=== PATIENT | female | born 1975 | race Two or more races ===

== ENCOUNTER 2022-05-22 16:03 | Observation (INO) | payer OTHER, SELFPAY ==
[2022-05-22] VITALS (9 sets, daily range): BP systolic 155–229; BP diastolic 79–110; PULSE 86–108; RESP 12–20; TEMP 36.8–36.9; O2SAT 96–100; BMI 22.4
--- NOTE | ~2022-05-22 | CT_ITS ---
EXAMINATION: CT HEAD WITHOUT CONTRAST CLINICAL INFORMATION: Headache. Hypertension. COMPARISON: None available. TECHNIQUE: Contiguous axial imaging was performed from the skull base to vertex without intravenous administration of contrast. This CT examination was performed using dose optimization techniques as appropriate, variously including the following: *Automated exposure control. *Adjustment of mA and/or kV according to patient size (this includes techniques or standardized protocols for targeted exams where dose is matched to indication/reason for exam; i.e. extremities or head). *Use of iterative reconstruction technique. DLP: 1218 mGy-cm FINDINGS: There is no evidence of acute intracranial hemorrhage or edematous territorial infarction. [place]-white matter differentiation is preserved. Hypoattenuating focus caudal to the left lentiform nucleus suggestive of a prominent perivascular space. No additional abnormal attenuation within the brain parenchyma. The ventricles are normal in morphology and size. No evidence for obstructive hydrocephalus. No abnormal mass effect or midline shift. No extra-axial fluid collections. Calcific atherosclerotic disease of the intracranial internal carotid arteries. No hyperdense vessel sign. No acute soft tissue or osseous abnormalities. The mastoid air cells and visualized paranasal sinuses are clear. Bilateral lens extractions. CT/CT head/brain wo IV con IMPRESSION: No evidence of acute intracranial hemorrhage or edematous territorial infarction.
--- NOTE | 2022-05-22 16:25 | ECG_ITS ---
Test Reason : CP Blood Pressure : / mmHG Vent. Rate : 103 BPM Atrial Rate : 103 BPM P-R Int : 146 ms QRS Dur : 082 ms QT Int : 406 ms P-R-T Axes : 072 089 072 degrees QTc Int : 531 ms Sinus tachycardia Possible Left atrial enlargement Prolonged QT Abnormal ECG When compared with ECG of 11-NOV-2019 22:38, QT has lengthened Referred By: Generic ED Physician Electronically Signed By:JESUS SNELL
--- NOTE | 2022-05-22 17:10 | PC.NURSE ---
Patient complaint of chest and head pain post dialysis is hypertensive unsure of fluids taken off. No respiratory distress noted neuros intact AOx 4 + bruit and thrill fistula LUE dressing clean dry and intact. IV access obtained labs collected and sent will CTM
--- NOTE | 2022-05-22 17:12 | ED_ITS ---
HPI - Chest Pain General Chief Complaint: Chest Pain <Ann Stern NP - Last Filed: 05/22/22 17:41> Stated Complaint: headace nausea neck pain <Ann Stern NP - Last Filed: 05/22/22 17:41> Time Seen by Provider: 05/22/22 16:18 <Ann Stern NP - Last Filed: 05/22/22 17:41> Source: patient <Ann Stern NP - Last Filed: 05/22/22 17:41> Mode of arrival: ambulatory <Ann Stern NP - Last Filed: 05/22/22 17:41> Limitations: no limitations <Ann Stern NP - Last Filed: 05/22/22 17:41> History of Present Illness HPI narrative: 47-year-old female with a past medical history of end-stage renal disease on hemodialysis presents the emergency department with complaints of chest pain, headache, nausea and vomiting with elevated blood pressure noted during dialysis. Patient states she has been anuric for past 2 years. She states she completed the full course of dialysis with roughly 4 L fluid pulled. She reports blood pressure was 200s over 100s during dialysis. She states she has not had this happen to her in the past. Pt denies any recent illness, sick contacts, paresthesias, weakness, fever, chills, nausea, vomiting, diarrhea, constipation, headache, or vision changes. <Ann Stern NP - Last Filed: 05/22/22 17:41> MD complaint: chest pain <Ann Stern NP - Last Filed: 05/22/22 17:41> Onset (ago): hour(s) <Ann Stern NP - Last Filed: 05/22/22 17:41> Quality: sharp <Ann Stern NP - Last Filed: 05/22/22 17:41> Associated symptoms: nausea and vomiting <Ann Stern NP - Last Filed: 05/22/22 17:41> Treatment prior to arrival: none <Ann Stern NP - Last Filed: 05/22/22 17:41> Risk Factors Coronary artery disease risk factors: none <Ann Stern NP - Last Filed: 05/22/22 17:41> Thoracic aortic dissection risk factors: none <Ann Stern NP - Last Filed: 05/22/22 17:41> Related Data On Oral Contraceptives: No <Ann Stern NP - Last Filed: 05/22/22 17:41> Allergies/Adverse Reactions: Allergies Allergy/AdvReac Type Severity Reaction Status Date / Time acetaminophen [From TYLENOL] Allergy Unknown UNKNOWN Unverified 01/13/20 18:31 hydrocodone [HYDROCODONE] Allergy Unknown UNKNOWN Unverified 01/13/20 18:31 ibuprofen [IBUPROFEN] Allergy Unknown UNKNOWN Unverified 01/13/20 18:31 latex [LATEX] Allergy Unknown UNKNOWN Unverified 01/13/20 18:31 trazodone [TRAZODONE] Allergy Unknown UNKNOWN Unverified 01/13/20 18:31 <Ann Stern NP - Last Filed: 05/22/22 17:41> Review of Systems Review of Systems: In addition to documented HPI above, the additional ROS was obtained: CONSTITUTIONAL: Denies fever, chills, weakness, fatigue, night sweats, or weight loss EYES: Denies vision changes, eye pain, swelling, redness, foreign body, discharge ENT: Hearing normal. Denies sore throat, swallowing difficulty, throat tightness, hoarse voice, congestion, or ear pain CV: Denies epigastric pain. No edema, palpitations, or dyspnea on exertion RESP: Denies shortness of breath. Denies cough, wheezing, dyspnea. Denies smoke exposure GI: Denies abdominal pain. Denies nausea, vomiting, constipation or diarrhea. No hematemesis, melena, or hematochezia. : Denies irregular bleeding or vaginal discharge. . MSK: Denies recent trauma, change in gait, myalgias, joint swelling or pain SKIN: Denies no lesions, rashes, or sores NEURO: Denies new numbness, tingling, dizziness, paresthesias or weakness. No loss of consciousness. Denies headache ENDOCRINE: Denies unexpected weight loss. No temperature intolerance HEME/ONC: Denies bleeding disorders, easy bruising, or lymphadenopathy PSYCH: Denies anxiety/panic, depression, SI/HI, or social issues. <Ann Stern NP - Last Filed: 05/22/22 17:41> Yes all other systems are reviewed and are negative <Ann Stern NP - Last Filed: 05/22/22 17:41> [facility] Past Medical History Attestation statement: The following information was validated with the patient. <Ann Stern NP - Last Filed: 05/22/22 17:41> Source: old records reviewed <Ann Stern NP - Last Filed: 05/22/22 17:41> Social History Social History: Social History Alcohol intake: unknown Use of substances other than those prescribed or required for medical reasons: No Advance Directives: No Advance Directives Information Provided: No Patient : No <Ann Stern NP - Last Filed: 05/22/22 17:41> Physical Exam Vital Signs: Vital Signs: Last Vital Signs Temp 98.3 F 05/22/22 22:49 Pulse 86 05/22/22 23:22 Resp 14 05/22/22 23:22 BP 155/79 H 05/22/22 23:22 Pulse Ox 96 05/22/22 23:22 O2 Del Method 05/22/22 23:22 BMI result Body Mass Index 22.4 <Ann Stern NP - Last Filed: 05/22/22 17:41> Vital Signs: Last Vital Signs Temp 98.3 F 05/22/22 22:49 Pulse 86 05/22/22 23:22 Resp 14 05/22/22 23:22 BP 155/79 H 05/22/22 23:22 Pulse Ox 96 05/22/22 23:22 O2 Del Method 05/22/22 23:22 BMI result Body Mass Index 22.4 <LUMA Espinal - Last Filed: 05/22/22 23:51> Nursing notes and vital signs reviewed. GENERAL APPEARANCE: A&0 x 4, generally well appearing, no acute distress HENMT: Normal to inspection, atraumatic, face symmetrical. Normal external ears, nose, and oropharynx clear. EYE: PERRLA, EOM intact, structures appear normal NECK: Supple without lymphadenopathy. No stiffness or restricted ROM. CV: Normal to inspection. Dialysis fistula present at LUE HEART: Normal rate and regular rhythm, normal S1/S2, no M/R/G LUNGS: LS CTA, moving air well. Able to speak in complete sentences. No crackles, wheezes, or rhonchi auscultated ABDOMEN: Soft, nontender, nondistended. Normal bowel sounds noted BACK: No CVAT, no obvious deformity EXTREMITIES: Moving all extremities without difficulty. No cyanosis, clubbing, or edema. Normal capillary refill. NEUROLOGICAL: Alert and oriented, moving all 4 extremities with equal strength. CN not formally tested but appearing grossly intact. Observed to ambulate with normal gait. Cognition normal SKIN: Warm and dry without any lesions, rash, or visible sores PSYCH: Cooperative, normal affect, normal thought process <Ann thurston NP - Last Filed: 05/22/22 17:41> Course Course Course Narrative: 1630: EKG, blood work ordered including troponin and liver panel. 1715: Serology ordered to rule out viral URI 1730: Blood work and serology pending. Sign out given to Mitali GE <Ann Stern NP - Last Filed: 05/22/22 17:41> Reevaluation(s) Reevaluation #1: CBC appears to be around patient's baseline within normocytic anemia. Chemistry with elevated anion gap and a baseline kidney injury BUN of 27, creatinine 5.56 better than previous likely secondary to patient having dialysis prior to arrival. Patient's initial troponin 29.8, repeat 31.1 also could be elevated due to CKD, EKG nonischemic however showing sinus tachycardia. Patient remains tachycardic will order D-dimer to rule out PE. Also order head scan as patient is very hypertensive, not responding to p.o. medications, will order IV labetalol as her pressure is 200/99 I did do an exam on this patient NIH stroke scale 0. Neuro nonfocal. <LUMA Espinal - Last Filed: 05/22/22 23:51> Time: 21:29 <LUMA Espinal - Last Filed: 05/22/22 23:51> Reevaluation #2: CT with no acute findings. <LUMA Espinal - Last Filed: 05/22/22 23:51> Time: 22:15 <LUMA Espinal - Last Filed: 05/22/22 23:51> Reevaluation #3: Patients BP improving- 155/79, still reporting typical CP and headache however improving will give sumatriptan <LUMA Espinal - Last Filed: 05/22/22 23:51> Medications Administered Discontinued Medications Generic Name Dose Route Start Last Admin Trade Name Freq PRN Reason Stop Dose Admin Amlodipine Besylate 10 mg 05/22/22 17:29 05/22/22 17:39 Amlodipine Besylate 10 Mg Tablet PO 05/22/22 17:30 10 mg ONCE ONE Administration Protocol Fentanyl 50 mcg 05/22/22 19:23 05/22/22 19:40 Fentanyl Citrate/Pf 100 Mcg/2 Ml Vial IVPUSH 05/22/22 19:24 50 mcg ONCE ONE Administration Protocol Fentanyl 50 mcg 05/22/22 22:57 05/22/22 23:07 Fentanyl Citrate/Pf 100 Mcg/2 Ml Vial IVPUSH 05/22/22 22:58 50 mcg ONCE ONE Administration Protocol Sodium Chloride 1,000 mls @ 999 mls/hr 05/22/22 17:45 05/22/22 17:52 Ns IV 05/22/22 18:45 999 mls/hr .Q1H1M LEIGH Administration Labetalol HCl 20 mg 05/22/22 21:26 05/22/22 23:06 Labetalol Hcl 100 Mg/20 Ml Vial IVPUSH 05/22/22 21:27 20 mg ONCE ONE Administration <Ann Stern NP - Last Filed: 05/22/22 17:41> Medications Administered Discontinued Medications Generic Name Dose Route Start Last Admin Trade Name Freq PRN Reason Stop Dose Admin Amlodipine Besylate 10 mg 05/22/22 17:29 05/22/22 17:39 Amlodipine Besylate 10 Mg Tablet PO 05/22/22 17:30 10 mg ONCE ONE Administration Protocol Fentanyl 50 mcg 05/22/22 19:23 05/22/22 19:40 Fentanyl Citrate/Pf 100 Mcg/2 Ml Vial IVPUSH 05/22/22 19:24 50 mcg ONCE ONE Administration Protocol Fentanyl 50 mcg 05/22/22 22:57 05/22/22 23:07 Fentanyl Citrate/Pf 100 Mcg/2 Ml Vial IVPUSH 05/22/22 22:58 50 mcg ONCE ONE Administration Protocol Sodium Chloride 1,000 mls @ 999 mls/hr 05/22/22 17:45 05/22/22 17:52 Ns IV 05/22/22 18:45 999 mls/hr .Q1H1M LEIGH Administration Labetalol HCl 20 mg 05/22/22 21:26 05/22/22 23:06 Labetalol Hcl 100 Mg/20 Ml Vial IVPUSH 05/22/22 21:27 20 mg ONCE ONE Administration <LUMA Espinal - Last Filed: 05/22/22 23:51> Medical Decision Making Medical Decision Making MDM Narrative: 47-year-old female with a past medical history of end-stage renal disease on hemodialysis presents the emergency department with complaints of chest pain, headache, nausea and vomiting with elevated blood pressure noted during dialysis. EKG sinus tachycardia with prolonged QT, when compared to previous EKG done on 11/11/19 QT has lengthened. <Ann Stern NP - Last Filed: 05/22/22 17:41> Lab Data Result Diagrams: 05/22/22 16:38 05/22/22 16:38 <Ann Stern NP - Last Filed: 05/22/22 17:41> Labs: Lab Results 05/22/22 05/22/22 05/22/22 Range/Units 16:38 16:38 17:26 WBC 8.1 (4.8-10.8) X10*3/uL RBC 3.55 L (4.20-5.50) X10*6/uL Hgb 9.7 L (12.0-16.0) g/dl Hct 29.5 L (37.0-47.0) % MCV 83.1 (80.0-98.0) fL MCH 27.3 (27.0-33.0) pg MCHC 32.9 (31.0-35.0) g/dl RDW 12.8 (11.0-16.0) % Plt Count 185 (160-400) X10*3/uL MPV 10.3 (9.4-12.3) fL Immature Gran % (Auto) 0.5 H (0.0-0.4) % Neut % (Auto) 77.8 H (45-73) % Lymph % (Auto) 9.5 L (20-40) % Morrill % (Auto) 6.9 (2-11) % Eos % (Auto) 4.8 H (0-4) % Baso % (Auto) 0.5 (0-2) % Lymph # (Auto) 0.8 L (1.2-4.9) X10*3/uL Morrill # (Auto) 0.6 (0.1-1.2) X10*3/uL Eos # (Auto) 0.4 (0.0-0.4) X10*3/uL Baso # (Auto) 0.0 (0.0-0.2) X10*3/uL Abs Immat Gran (auto) 0.04 H (0.00-0.03) X10*3/uL Absolute Neuts (auto) 6.3 (2.0-8.3) x10*3/uL Absolute Nucleated RBC 0.000 (0.0-0.012) X10*3/uL Nucleated RBC % (auto) 0.0 (0.0-0.2) /100WBC Smear Tech's Comments VERIFIED D-Dimer High Sensitivty NG/ML Sodium 141 (135-145) mmol/L Potassium 3.9 (3.3-5.1) mmol/L Chloride 95 L (96-108) mmol/L Carbon Dioxide 27 (22-29) mmol/L Anion Gap 23 H (12-20) BUN 27 H (9-16) mg/dL Creatinine 5.56 H* (0.5-1.4) mg/dL Estim Creat Clear Calc 10.1 Estimated GFR 8 POC Glucose (60-115) mg/dL Random Glucose 61 (60-115) mg/dL Calcium 9.1 (8.4-10.2) mg/dL Total Bilirubin 1.0 (0.0-1.0) mg/dL Direct Bilirubin 0.2 (0.0-0.5) mg/dL AST 17 (5-31) U/L ALT 9 (0-31) U/L Alkaline Phosphatase 103 (39-117) U/L Troponin I High Sens 29.8 H (<3.5-17.0) ng/L Total Protein 7.3 (6.5-8.0) g/dL Albumin 4.4 (3.5-5.0) g/dL COVID-19 (SY) (Negative) COVID-19 Clin Com Influenza Type A (CHRISTIE) (Negative) Influenza Type B (CHRISTIE) (Negative) Influenza A & B Note 05/22/22 05/22/22 05/22/22 Range/Units 17:26 17:26 20:46 WBC (4.8-10.8) X10*3/uL RBC (4.20-5.50) X10*6/uL Hgb (12.0-16.0) g/dl Hct (37.0-47.0) % MCV (80.0-98.0) fL MCH (27.0-33.0) pg MCHC (31.0-35.0) g/dl RDW (11.0-16.0) % Plt Count (160-400) X10*3/uL MPV (9.4-12.3) fL Immature Gran % (Auto) (0.0-0.4) % Neut % (Auto) (45-73) % Lymph % (Auto) (20-40) % Morrill % (Auto) (2-11) % Eos % (Auto) (0-4) % Baso % (Auto) (0-2) % Lymph # (Auto) (1.2-4.9) X10*3/uL Morrill # (Auto) (0.1-1.2) X10*3/uL Eos # (Auto) (0.0-0.4) X10*3/uL Baso # (Auto) (0.0-0.2) X10*3/uL Abs Immat Gran (auto) (0.00-0.03) X10*3/uL Absolute Neuts (auto) (2.0-8.3) x10*3/uL Absolute Nucleated RBC (0.0-0.012) X10*3/uL Nucleated RBC % (auto) (0.0-0.2) /100WBC Smear Tech's Comments D-Dimer High Sensitivty NG/ML Sodium (135-145) mmol/L Potassium (3.3-5.1) mmol/L Chloride (96-108) mmol/L Carbon Dioxide (22-29) mmol/L Anion Gap (12-20) BUN (9-16) mg/dL Creatinine (0.5-1.4) mg/dL Estim Creat Clear Calc Estimated GFR POC Glucose (60-115) mg/dL Random Glucose (60-115) mg/dL Calcium (8.4-10.2) mg/dL Total Bilirubin (0.0-1.0) mg/dL Direct Bilirubin (0.0-0.5) mg/dL AST (5-31) U/L ALT (0-31) U/L Alkaline Phosphatase (39-117) U/L Troponin I High Sens 31.1 H (<3.5-17.0) ng/L Total Protein (6.5-8.0) g/dL Albumin (3.5-5.0) g/dL COVID-19 (SY) Negative (Negative) COVID-19 Clin Com See Note Influenza Type A (CHRISTIE) Negative (Negative) Influenza Type B (CHRISTIE) Negative (Negative) Influenza A & B Note See Note 05/22/22 05/22/22 Range/Units 22:03 23:29 WBC (4.8-10.8) X10*3/uL RBC (4.20-5.50) X10*6/uL Hgb (12.0-16.0) g/dl Hct (37.0-47.0) % MCV (80.0-98.0) fL MCH (27.0-33.0) pg MCHC (31.0-35.0) g/dl RDW (11.0-16.0) % Plt Count (160-400) X10*3/uL MPV (9.4-12.3) fL Immature Gran % (Auto) (0.0-0.4) % Neut % (Auto) (45-73) % Lymph % (Auto) (20-40) % Morrill % (Auto) (2-11) % Eos % (Auto) (0-4) % Baso % (Auto) (0-2) % Lymph # (Auto) (1.2-4.9) X10*3/uL Morrill # (Auto) (0.1-1.2) X10*3/uL Eos # (Auto) (0.0-0.4) X10*3/uL Baso # (Auto) (0.0-0.2) X10*3/uL Abs Immat Gran (auto) (0.00-0.03) X10*3/uL Absolute Neuts (auto) (2.0-8.3) x10*3/uL Absolute Nucleated RBC (0.0-0.012) X10*3/uL Nucleated RBC % (auto) (0.0-0.2) /100WBC Smear Tech's Comments D-Dimer High Sensitivty 227 NG/ML Sodium (135-145) mmol/L Potassium (3.3-5.1) mmol/L Chloride (96-108) mmol/L Carbon Dioxide (22-29) mmol/L Anion Gap (12-20) BUN (9-16) mg/dL Creatinine (0.5-1.4) mg/dL Estim Creat Clear Calc Estimated GFR POC Glucose 63 (60-115) mg/dL Random Glucose (60-115) mg/dL Calcium (8.4-10.2) mg/dL Total Bilirubin (0.0-1.0) mg/dL Direct Bilirubin (0.0-0.5) mg/dL AST (5-31) U/L ALT (0-31) U/L Alkaline Phosphatase (39-117) U/L Troponin I High Sens (<3.5-17.0) ng/L Total Protein (6.5-8.0) g/dL Albumin (3.5-5.0) g/dL COVID-19 (SY) (Negative) COVID-19 Clin Com Influenza Type A (CHRISTIE) (Negative) Influenza Type B (CHRISTIE) (Negative) Influenza A & B Note <Ann Stern NP - Last Filed: 05/22/22 17:41> Lab Results 05/22/22 05/22/22 05/22/22 Range/Units 16:38 16:38 17:26 WBC 8.1 (4.8-10.8) X10*3/uL RBC 3.55 L (4.20-5.50) X10*6/uL Hgb 9.7 L (12.0-16.0) g/dl Hct 29.5 L (37.0-47.0) % MCV 83.1 (80.0-98.0) fL MCH 27.3 (27.0-33.0) pg MCHC 32.9 (31.0-35.0) g/dl RDW 12.8 (11.0-16.0) % Plt Count 185 (160-400) X10*3/uL MPV 10.3 (9.4-12.3) fL Immature Gran % (Auto) 0.5 H (0.0-0.4) % Neut % (Auto) 77.8 H (45-73) % Lymph % (Auto) 9.5 L (20-40) % Morrill % (Auto) 6.9 (2-11) % Eos % (Auto) 4.8 H (0-4) % Baso % (Auto) 0.5 (0-2) % Lymph # (Auto) 0.8 L (1.2-4.9) X10*3/uL Morrill # (Auto) 0.6 (0.1-1.2) X10*3/uL Eos # (Auto) 0.4 (0.0-0.4) X10*3/uL Baso # (Auto) 0.0 (0.0-0.2) X10*3/uL Abs Immat Gran (auto) 0.04 H (0.00-0.03) X10*3/uL Absolute Neuts (auto) 6.3 (2.0-8.3) x10*3/uL Absolute Nucleated RBC 0.000 (0.0-0.012) X10*3/uL Nucleated RBC % (auto) 0.0 (0.0-0.2) /100WBC Smear Tech's Comments VERIFIED D-Dimer High Sensitivty NG/ML Sodium 141 (135-145) mmol/L Potassium 3.9 (3.3-5.1) mmol/L Chloride 95 L (96-108) mmol/L Carbon Dioxide 27 (22-29) mmol/L Anion Gap 23 H (12-20) BUN 27 H (9-16) mg/dL Creatinine 5.56 H* (0.5-1.4) mg/dL Estim Creat Clear Calc 10.1 Estimated GFR 8 POC Glucose (60-115) mg/dL Random Glucose 61 (60-115) mg/dL Calcium 9.1 (8.4-10.2) mg/dL Total Bilirubin 1.0 (0.0-1.0) mg/dL Direct Bilirubin 0.2 (0.0-0.5) mg/dL AST 17 (5-31) U/L ALT 9 (0-31) U/L Alkaline Phosphatase 103 (39-117) U/L Troponin I High Sens 29.8 H (<3.5-17.0) ng/L Total Protein 7.3 (6.5-8.0) g/dL Albumin 4.4 (3.5-5.0) g/dL COVID-19 (SY) (Negative) COVID-19 Clin Com Influenza Type A (CHRISTIE) (Negative) Influenza Type B (CHRISTIE) (Negative) Influenza A & B Note 05/22/22 05/22/22 05/22/22 Range/Units 17:26 17:26 20:46 WBC (4.8-10.8) X10*3/uL RBC (4.20-5.50) X10*6/uL Hgb (12.0-16.0) g/dl Hct (37.0-47.0) % MCV (80.0-98.0) fL MCH (27.0-33.0) pg MCHC (31.0-35.0) g/dl RDW (11.0-16.0) % Plt Count (160-400) X10*3/uL MPV (9.4-12.3) fL Immature Gran % (Auto) (0.0-0.4) % Neut % (Auto) (45-73) % Lymph % (Auto) (20-40) % Morrill % (Auto) (2-11) % Eos % (Auto) (0-4) % Baso % (Auto) (0-2) % Lymph # (Auto) (1.2-4.9) X10*3/uL Morrill # (Auto) (0.1-1.2) X10*3/uL Eos # (Auto) (0.0-0.4) X10*3/uL Baso # (Auto) (0.0-0.2) X10*3/uL Abs Immat Gran (auto) (0.00-0.03) X10*3/uL Absolute Neuts (auto) (2.0-8.3) x10*3/uL Absolute Nucleated RBC (0.0-0.012) X10*3/uL Nucleated RBC % (auto) (0.0-0.2) /100WBC Smear Tech's Comments D-Dimer High Sensitivty NG/ML Sodium (135-145) mmol/L Potassium (3.3-5.1) mmol/L Chloride (96-108) mmol/L Carbon Dioxide (22-29) mmol/L Anion Gap (12-20) BUN (9-16) mg/dL Creatinine (0.5-1.4) mg/dL Estim Creat Clear Calc Estimated GFR POC Glucose (60-115) mg/dL Random Glucose (60-115) mg/dL Calcium (8.4-10.2) mg/dL Total Bilirubin (0.0-1.0) mg/dL Direct Bilirubin (0.0-0.5) mg/dL AST (5-31) U/L ALT (0-31) U/L Alkaline Phosphatase (39-117) U/L Troponin I High Sens 31.1 H (<3.5-17.0) ng/L Total Protein (6.5-8.0) g/dL Albumin (3.5-5.0) g/dL COVID-19 (SY) Negative (Negative) COVID-19 Clin Com See Note Influenza Type A (CHRISTIE) Negative (Negative) Influenza Type B (CHRISTIE) Negative (Negative) Influenza A & B Note See Note 05/22/22 05/22/22 Range/Units 22:03 23:29 WBC (4.8-10.8) X10*3/uL RBC (4.20-5.50) X10*6/uL Hgb (12.0-16.0) g/dl Hct (37.0-47.0) % MCV (80.0-98.0) fL MCH (27.0-33.0) pg MCHC (31.0-35.0) g/dl RDW (11.0-16.0) % Plt Count (160-400) X10*3/uL MPV (9.4-12.3) fL Immature Gran % (Auto) (0.0-0.4) % Neut % (Auto) (45-73) % Lymph % (Auto) (20-40) % Morrill % (Auto) (2-11) % Eos % (Auto) (0-4) % Baso % (Auto) (0-2) % Lymph # (Auto) (1.2-4.9) X10*3/uL Morrill # (Auto) (0.1-1.2) X10*3/uL Eos # (Auto) (0.0-0.4) X10*3/uL Baso # (Auto) (0.0-0.2) X10*3/uL Abs Immat Gran (auto) (0.00-0.03) X10*3/uL Absolute Neuts (auto) (2.0-8.3) x10*3/uL Absolute Nucleated RBC (0.0-0.012) X10*3/uL Nucleated RBC % (auto) (0.0-0.2) /100WBC Smear Tech's Comments D-Dimer High Sensitivty 227 NG/ML Sodium (135-145) mmol/L Potassium (3.3-5.1) mmol/L Chloride (96-108) mmol/L Carbon Dioxide (22-29) mmol/L Anion Gap (12-20) BUN (9-16) mg/dL Creatinine (0.5-1.4) mg/dL Estim Creat Clear Calc Estimated GFR POC Glucose 63 (60-115) mg/dL Random Glucose (60-115) mg/dL Calcium (8.4-10.2) mg/dL Total Bilirubin (0.0-1.0) mg/dL Direct Bilirubin (0.0-0.5) mg/dL AST (5-31) U/L ALT (0-31) U/L Alkaline Phosphatase (39-117) U/L Troponin I High Sens (<3.5-17.0) ng/L Total Protein (6.5-8.0) g/dL Albumin (3.5-5.0) g/dL COVID-19 (SY) (Negative) COVID-19 Clin Com Influenza Type A (CHRISTIE) (Negative) Influenza Type B (CHRISTIE) (Negative) Influenza A & B Note <LUMA Espinal - Last Filed: 05/22/22 23:51> Independent Interpretation I performed an independent interpretation of an: EKG <Ann Stern NP - Last Filed: 05/22/22 17:41> Interpretation: I independently reviewed the EKG showing sinus tach, prolonged QT at 103 bpm. Vent. Rate : 103 BPM ? ? Atrial Rate : 103 BPM ?? P-R Int : 146 ms? QRS Dur : 082 ms ? ? QT Int : 406 ms ? ? ? P-R-T Axes : 072 089 072 degrees ?? QTc Int : 531 ms ? Sinus tachycardia Possible Left atrial enlargement Prolonged QT Abnormal ECG When compared with ECG of 11-NOV-2019 22:38, QT has lengthened <Ann Stern NP - Last Filed: 05/22/22 17:41> Critical Care Time Critical Care Time Critical Care Time: Yes <LUMA Espinal - Last Filed: 05/22/22 23:51> Total Critical Care Time: 35 <LUMA Espinal - Last Filed: 05/22/22 23:51> Attestation: I attest to this time spent taking care of the patient, obtaining history, physical, reviewing labs, imaging, speaking to my attending, speaking to specialist. <LUMA Espinal - Last Filed: 05/22/22 23:51> Discharge Plan Discharge Clinical Impression: Chest pain, Headache, CKD (chronic kidney disease), Hypertensive urgency <Ann Stern NP - Last Filed: 05/22/22 17:41> Patient Disposition: Admitted As Inpatient <Ann Stern NP - Last Filed: 05/22/22 17:41>
[2022-05-22 17:37] LABS: Troponin-I High Sensitivity 29.8 ng/L (<3.5-17.0)
[2022-05-22 17:38] LABS: Anion Gap 23 (12-20); Blood Urea Nitrogen 27 mg/dL (9-16); Calcium 9.1 mg/dL (8.4-10.2); Carbon Dioxide 27 mmol/L (22-29); Chloride 95 mmol/L (96-108); Creatinine Clr Calc Pharmacy 10.1; Estimated Glomerular Filt Rate 8; Glucose Random 61 mg/dL (60-115); Potassium 3.9 mmol/L (3.3-5.1); Sodium 141 mmol/L (135-145)
[2022-05-22] MEDS: amLODIPine Besylate 10 MG TABLET PO (17:39)
[2022-05-22 17:49] LABS: COVID-19 Test Negative (Negative); IDNOW Serial# 16C4AD1C; IDNOW Serial# BCCEAD1C; Influenza A Negative (Negative); Influenza B2 Negative (Negative)
[2022-05-22 17:50] LABS: Alanine Aminotransferase 9 U/L (0-31); Albumin Level 4.4 g/dL (3.5-5.0); Alkaline Phosphatase 103 U/L (39-117); Aspartate Amino Transferase 17 U/L (5-31); Bilirubin Direct 0.2 mg/dL (0.0-0.5); Total Protein 7.3 g/dL (6.5-8.0)
[2022-05-22] MEDS: 0.9 % Sodium Chloride 1,000 ML 999 ML IV (17:52)
[2022-05-22 18:03] LABS: Lymphocytes Percent Auto 9.5 % (20-40); MANUAL DIFF FLAG SCAN; Mean Corpuscular Volume 83.1 fL (80.0-98.0); PLT CLUMP 1; Red Cell Distribution Width 12.8 % (11.0-16.0); SCAN SMEAR FLAG 1
[2022-05-22 18:05] LABS: Basophils Percent Auto 0.5 % (0-2); Eosinophils Absolute Auto 0.4 X10*3/uL (0.0-0.4); Eosinophils Percent Auto 4.8 % (0-4); Hematocrit 29.5 % (37.0-47.0); Hemoglobin 9.7 g/dl (12.0-16.0); Imm Gran Abs Auto 0.04 X10*3/uL (0.00-0.03); Imm Gran Pct Auto 0.5 % (0.0-0.4); Lymphocytes Absolute Auto 0.8 X10*3/uL (1.2-4.9); Mean Corpuscular HGB Conc 32.9 g/dl (31.0-35.0); Mean Corpuscular Hemoglobin 27.3 pg (27.0-33.0); Mean Platelet Volume 10.3 fL (9.4-12.3); Monocytes Absolute Auto 0.6 X10*3/uL (0.1-1.2); Monocytes Percent Auto 6.9 % (2-11); Neutrophils Absolute Auto 6.3 x10*3/uL (2.0-8.3); Neutrophils Percent Auto 77.8 % (45-73); Red Blood Count 3.55 X10*6/uL (4.20-5.50)
[2022-05-22 18:29] LABS: Platelet Count 185 X10*3/uL (160-400); White Blood Count 8.1 X10*3/uL (4.8-10.8)
[2022-05-22 18:31] LABS: SLIDE REVIEW VERIFIED
--- NOTE | 2022-05-22 19:33 | ECG_ITS ---
Test Reason : REPEAT/CHEST PAIN Blood Pressure : / mmHG Vent. Rate : 103 BPM Atrial Rate : 103 BPM P-R Int : 136 ms QRS Dur : 080 ms QT Int : 394 ms P-R-T Axes : 068 090 066 degrees QTc Int : 516 ms Sinus tachycardia Possible Left atrial enlargement Rightward axis Prolonged QT Abnormal ECG When compared with ECG of 22-MAY-2022 16:29, No significant change was found Referred By: Genoveva Hernandez Electronically Signed By:JESUS SNELL
--- NOTE | 2022-05-22 19:36 | PC.NURSE ---
Martir Hernandez made aware pt c/o 01/05 medial chest pain , neck pain and stabbing like headache. Per provider new orders Ekg stat and fentanyl IV 50 mcg.
--- NOTE | 2022-05-22 19:38 | PC.NURSE ---
Provider aware pt continues with elevated blood pressures, no new orders at this time.
[2022-05-22] MEDS: fentaNYL citrate/PF 100 MCG/2 ML VIAL 50 MCG IVPUSH ×2 (19:40→23:07)
[2022-05-22 21:13] LABS: Troponin-I High Sensitivity 31.1 ng/L (<3.5-17.0)
[2022-05-22 22:23] LABS: D Dimer High Sensitivity 227 NG/ML
--- NOTE | 2022-05-22 22:52 | PC.NURSE ---
Pt villanueva X 4 c/o 01/05 sharp chest pain reports pain remains the same.
[2022-05-22] MEDS: Labetalol HCL 100 MG/20 ML VIAL 20 MG IVPUSH (23:06)
--- NOTE | 2022-05-22 23:23 | PC.NURSE ---
Pt medicated per MAR VS much improved see chart.
[2022-05-22 23:33] LABS: Glucose, Whole Blood 63 mg/dL (60-115)
--- NOTE | 2022-05-22 23:35 | PC.NURSE ---
Pt reported dizziness after receiving labetolol 20 mg IV and fentanol 50 mcg IV. Blood sugar assessed 63. okay per provider for pt to receive elen Iqbal.
--- NOTE | 2022-05-22 23:51 | PM.IMHP ---
History of Present Illness Date of Service: 05/22/22 Chief Complaint: IGNACIA saunders 47-year-old female with past medical history of ESRD on dialysis, hypertension, diabetes, presents to the hospital complaints of chest pain headache. Patient reports that she has chronic severe as well as poorly controlled hypertension, that has been hard to control, currently being evaluated by Nephrology as well as her PCP in being monitored with new changes to her medications because she reports that her blood pressure is usually in the 200s. Comes in complaining of diffuse headache, as well as midsternal chest pain. She reports the chest pain to be pressure-like, constant, nonradiating, no relieving or exacerbating factors. Patient denies any nausea no vomiting, no abdominal pain, no diarrhea constipation, no urinary symptoms and no lower extremity edema. She reports no palpitations. To the ED patient hemodynamically stable with heart rate of 102, blood pressure of 229/106 Labs are significant for WBC count of 8.1, hemoglobin of 9.7, hematocrit 29.5, creatinine of 5.56, glucose of 57, troponin of 29 increased to 30 when then 3rd troponin of 27.2, COVID-19 influenza and RSV negative Patient received labetalol as well as a 2nd dose of amlodipine which she takes at home, as well as fentanyl for the headache with improvement in her symptoms as well as blood pressure Review of Systems Review of Systems: Yes all other systems are reviewed and are negative [facility] Medical History (Updated 05/23/22 @ 06:58 by Pipe Rainey MD) Diabetes ESRD on dialysis Hypertension Social History Household Members: Children Housing: House Do you presently have visiting nurse or other home services: Yes (daughter is SANITARIAN AIDE, PT comes to house) Alcohol intake: unknown Patient Tobacco Use Status: Former Tobacco user Use of substances other than those prescribed or required for medical reasons: No Have you been hit, kicked, punched, or otherwise hurt by someone within the past year? If so, by whom?: No Do you feel safe in your current relationship?: No Is there a partner from a previous relationship who is making you feel unsafe now?: No Are you made to feel afraid or neglected: No Advance Directives: No Advance Directives Information Provided: No Do you have thoughts of harming others: None Recently lost weight without trying: No Nutrition Risks: Gastrointestinal Malabsorption Patient : No : No Poor oral hygiene: No Meds Allergies Allergy/AdvReac Type Severity Reaction Status Date / Time acetaminophen [From TYLENOL] Allergy Unknown UNKNOWN Unverified 01/13/20 18:31 hydrocodone [HYDROCODONE] Allergy Unknown UNKNOWN Unverified 01/13/20 18:31 ibuprofen [IBUPROFEN] Allergy Unknown UNKNOWN Unverified 01/13/20 18:31 latex [LATEX] Allergy Unknown UNKNOWN Unverified 01/13/20 18:31 trazodone [TRAZODONE] Allergy Unknown UNKNOWN Unverified 01/13/20 18:31 Active Medications: Current Medications Pharmacy Consult (Consult Rx Perform Med Rec) 1 each MISCELLANE ONCE PRN PRN Reason: Consult order Physical Exam Vital Signs and Narrative: Vital Signs: Last Vital Signs Temp 98.3 F 05/22/22 22:49 Pulse 86 05/22/22 23:22 Resp 14 05/22/22 23:22 BP 155/79 H 05/22/22 23:22 Pulse Ox 96 05/22/22 23:22 O2 Del Method 05/22/22 23:22 BMI result Body Mass Index 22.4 Results Labs 05/22/22 17:26 05/22/22 16:38 Labs: Laboratory Results - last 24 hr 05/22/22 05/22/22 05/22/22 16:38 16:38 17:26 MCV 83.1 MCH 27.3 MCHC 32.9 RDW 12.8 Plt Count 185 MPV 10.3 Immature Gran % (Auto) 0.5 H Neut % (Auto) 77.8 H Lymph % (Auto) 9.5 L [place] % (Auto) 6.9 Eos % (Auto) 4.8 H Baso % (Auto) 0.5 Lymph # (Auto) 0.8 L [place] # (Auto) 0.6 Eos # (Auto) 0.4 Baso # (Auto) 0.0 Abs Immat Gran (auto) 0.04 H Absolute Neuts (auto) 6.3 Absolute Nucleated RBC 0.000 Nucleated RBC % (auto) 0.0 Smear Tech's Comments VERIFIED D-Dimer High Sensitivty Anion Gap 23 H Estim Creat Clear Calc 10.1 Estimated GFR 8 POC Glucose Random Glucose 61 Calcium 9.1 Total Bilirubin 1.0 Direct Bilirubin 0.2 AST 17 ALT 9 Alkaline Phosphatase 103 Troponin I High Sens 29.8 H Total Protein 7.3 Albumin 4.4 COVID-19 (SY) COVID-19 Clin Com Influenza Type A (CHRISTIE) Influenza Type B (CHRISTIE) Influenza A & B Note 05/22/22 05/22/22 05/22/22 17:26 17:26 20:46 MCV MCH MCHC RDW Plt Count MPV Immature Gran % (Auto) Neut % (Auto) Lymph % (Auto) [place] % (Auto) Eos % (Auto) Baso % (Auto) Lymph # (Auto) [place] # (Auto) Eos # (Auto) Baso # (Auto) Abs Immat Gran (auto) Absolute Neuts (auto) Absolute Nucleated RBC Nucleated RBC % (auto) Smear Tech's Comments D-Dimer High Sensitivty Anion Gap Estim Creat Clear Calc Estimated GFR POC Glucose Random Glucose Calcium Total Bilirubin Direct Bilirubin AST ALT Alkaline Phosphatase Troponin I High Sens 31.1 H Total Protein Albumin COVID-19 (SY) Negative COVID-19 Clin Com See Note Influenza Type A (CHRISTIE) Negative Influenza Type B (CHRISTIE) Negative Influenza A & B Note See Note 05/22/22 05/22/22 22:03 23:29 MCV MCH MCHC RDW Plt Count MPV Immature Gran % (Auto) Neut % (Auto) Lymph % (Auto) [place] % (Auto) Eos % (Auto) Baso % (Auto) Lymph # (Auto) [place] # (Auto) Eos # (Auto) Baso # (Auto) Abs Immat Gran (auto) Absolute Neuts (auto) Absolute Nucleated RBC Nucleated RBC % (auto) Smear Tech's Comments D-Dimer High Sensitivty 227 Anion Gap Estim Creat Clear Calc Estimated GFR POC Glucose 63 Random Glucose Calcium Total Bilirubin Direct Bilirubin AST ALT Alkaline Phosphatase Troponin I High Sens Total Protein Albumin COVID-19 (SY) COVID-19 Clin Com Influenza Type A (CHRISTIE) Influenza Type B (CHRISTIE) Influenza A & B Note Imaging Radiologist's Impressions: Impressions Head CT 05/22/22 21:47 IMPRESSION: No evidence of acute intracranial hemorrhage or edematous territorial infarction. Assessment and Plan (1) Hypertensive urgency: Status: Acute (2) ESRD on dialysis: Status: Inactive (3) Chest pain: Status: Acute (4) Headache: Status: Acute Plan 47-year-old female with past medical history of a ESRD on dialysis Friday hypertension as well as diabetes presents to the hospital with complaints of headache and chest pain # hypertensive urgency - found to have significantly elevated blood pressure, with headache and chest pain - no significant elevated troponin, head CT negative - patient treated with IV labetalol as well as amlodipine p.o., as well as 1 dose of hydralazine with improvement of her BP - monitor BP - nephrology consult # chest pain - although typical, patient has no significant EKG changes, and no significant elevated troponin - improved after BP control # Headache - likely 2/2 above - Symptom control - improve with bp control # ESRD - continue dialysis DM - LDSSI - Diabetic diet DVT Ppx:Heparin sub q Time Spent With Patient Time: Total time managing care of this patient today ____ minutes. Quality Stroke Does the patient have a stroke diagnosis?: No VTE Prior VTE?: No VTE Risk Level:: Medical - moderate - high VTE Device Contraindication: Treatment Not Indicated VTE Drug Contraindication: N/A - Med Ordered
--- NOTE | 2022-05-22 23:58 | PC.NURSE ---
TOYIN Bowen reports blood sugar is 57. Okay per Elenita ruvalcaba to give pt OJ with sugar packets. Pt received a total of four sugar packets.
[2022-05-23] VITALS (10 sets, daily range): BP systolic 152–196; BP diastolic 80–94; PULSE 85–102; RESP 16–20; TEMP 36.2–37.2; O2SAT 92–98; BMI 22.4
[2022-05-23 00:01] LABS: Glucose, Whole Blood 57 mg/dL (60-115)
[2022-05-23] MEDS: Heparin Sodium,Porcine 5,000 UNIT/ML VIAL 5000 UNIT SUBCUT ×3 (00:12→23:34)
[2022-05-23] MEDS: 0.9 % Sodium Chloride Flush 3 ML SYRINGE IVFLUSH ×4 (00:12→20:58)
[2022-05-23] MEDS: SUMAtriptan succinate 6 MG/0.5 ML VIAL SUBCUT (00:13)
--- NOTE | 2022-05-23 00:24 | PC.NURSE ---
Pt medicated per MAR VS remail stable pt oxygen saturation 98% room air.
[2022-05-23 00:53] LABS: Troponin-I High Sensitivity 27.2 ng/L (<3.5-17.0)
[2022-05-23 00:54] LABS: Glucose, Whole Blood 111 mg/dL (60-115)
[2022-05-23] MEDS: Zolpidem Tartrate 5 MG TABLET PO ×2 (03:17→20:58)
[2022-05-23] MEDS: HYDROmorphone HCl 1 MG/ML SYRINGE IVPUSH (03:18)
[2022-05-23] MEDS: hydrALAZINE HCl 20 MG/ML VIAL 10 MG IVPUSH (03:20)
[2022-05-23 07:25] LABS: Alanine Aminotransferase 11 U/L (0-31); Albumin Level 3.9 g/dL (3.5-5.0); Alkaline Phosphatase 90 U/L (39-117); Anion Gap 19 (12-20); Aspartate Amino Transferase 16 U/L (5-31); Bilirubin Total 0.7 mg/dL (0.0-1.0); Blood Urea Nitrogen 31 mg/dL (9-16); Calcium 8.4 mg/dL (8.4-10.2); Carbon Dioxide 27 mmol/L (22-29); Chloride 96 mmol/L (96-108); Creatinine Clr Calc Pharmacy 7.7; Estimated Glomerular Filt Rate 6; Glucose Random 66 mg/dL (60-115); Potassium 4.3 mmol/L (3.3-5.1); Sodium 138 mmol/L (135-145); Total Protein 6.4 g/dL (6.5-8.0)
[2022-05-23 07:29] LABS: Glucose, Whole Blood 74 mg/dL (60-115)
--- NOTE | 2022-05-23 09:04 | MHC.CM.PN ---
CM met with Patient at bedside and addressed CARDENAS with her (original has been given to Patient and a copy has been placed on the chart). Patient lives in a house with her Daughter, Son, and 4 year old Grandson and she uses a walker to assist with mobility. Patient is active with [facility], [facility] [employer] [employer] [facility] (10 hours/week) and [facility] M/[facility]/F. Patient has received no Covid vax and her PCP is Ward Horton.
[2022-05-23 11:23] LABS: Glucose, Whole Blood 107 mg/dL (60-115)
[2022-05-23] MEDS: Losartan Potassium 50 MG TABLET 100 MG PO (12:13)
[2022-05-23] MEDS: amLODIPine Besylate 10 MG TABLET PO (12:14)
[2022-05-23] MEDS: Escitalopram Oxalate 20 MG TABLET PO (12:15)
[2022-05-23] MEDS: carvediloL 6.25 MG TABLET PO ×2 (12:15→20:57)
[2022-05-23] MEDS: ondansetron HCL 4 MG/2 ML VIAL IVPUSH ×2 (12:23→21:03)
[2022-05-23] MEDS: levETIRAcetam 500 MG TABLET PO (12:24)
--- NOTE | 2022-05-23 12:38 | P.PNIM_ITS ---
Subjective Subjective Date of Service: 05/23/22 Interval History: Complaining of pressure-like headache and continuous anterior chest discomfort, no shortness of breath, no palpitations blood pressure significantly improved now 164/95, complaining of vomiting after eating meals, blood sugars stable, had full hemodialysis yesterday, treated in the emergency room with multiple doses of fentanyl, IV Dilaudid, and Imitrex. Review of Systems Review of Systems: Yes all other systems are reviewed and are negative Physical Exam Vital Signs: Vital Signs: Last Vital Signs Temp 98.3 F 05/23/22 11:12 Pulse 98 05/23/22 11:12 Resp 20 05/23/22 11:12 BP 164/94 H 05/23/22 11:12 Pulse Ox 97 05/23/22 11:12 O2 Del Method 05/23/22 11:12 BMI result Body Mass Index 22.4 Const: Other: General sitting comfortably in bed, talking in full sentences, in no acute distress. Neck supple no JVD. CVS regular rate rhythm, tenderness to anterior chest wall with palpation Respiratory lungs clear to auscultation, no respiratory distress, no wheeze, no rhonchi. Gastrointestinal abdomen soft, nontender, bowel sounds audible, no guarding , no rigidity. Extremities no edema. Neuro nonfocal , speech clear. Skin no rash Psych appropriate affect Objective Data Active Medications Acetaminophen/Butalbital/Caffeine (Butalb/Acetamin/Caff 50/325/40 Tablet) 1 tab PO Q6H PRN PRN Reason: Headache Albuterol Sulfate (Albuterol Sulfate (0.083%) 2.5 Mg/3 Ml Vial.Neb) 2.5 mg INHALE RQ4H PRN PRN Reason: Shortness Of Breath Albuterol Sulfate (Albuterol Sulfate 90 Mcg 8 Gm Inhaler) 2 puff INHALE RQ4H PRN PRN Reason: Shortness Of Breath Amlodipine Besylate (Amlodipine Besylate 10 Mg Tablet) 10 mg PO DAILY [facility]; Protocol Last Admin: 05/23/22 12:14 Dose: 10 mg Documented By: DIEGO Aripiprazole (Aripiprazole 10 Mg Tablet) 10 mg PO DAILY [facility] Atorvastatin Calcium (Atorvastatin Calcium 40 Mg Tablet) 40 mg PO BEDTIME [facility] Buspirone HCl (Buspirone Hcl 10 Mg Tablet) 10 mg PO BID [facility] Calcitriol (Calcitriol 0.25 Mcg Capsule) 0.75 mcg PO MoWeFr [facility] Carvedilol (Carvedilol 6.25 Mg Tablet) 6.25 mg PO BID [facility]; Protocol Last Admin: 05/23/22 12:15 Dose: 6.25 mg Documented By: DIEOG Dextrose (Dextrose 50 % 25 Gm/50 Ml Syringe) 25 gm IVPUSH Q15M PRN; Protocol PRN Reason: per Hypoglycemia Standing Ord. Docusate Sodium (Docusate Sodium 100 Mg Capsule) 100 mg PO DAILY PRN PRN Reason: Constipation Docusate Sodium (Docusate Sodium 100 Mg Capsule) 100 mg PO DAILY@1200 PRN PRN Reason: Constipation Docusate Sodium (Docusate Sodium 100 Mg Capsule) 100 mg PO DAILY [facility] Escitalopram Oxalate (Escitalopram Oxalate 20 Mg Tablet) 20 mg PO DAILY [facility] Last Admin: 05/23/22 12:15 Dose: 20 mg Documented By: DIEGO Fluticasone/Vilanterol (Fluticasone/Vilanterol 200/25 Blst.W.Dev) 1 puff INHALE DAILY [facility] Glucose (Glucose Gel 15 Gm Gel..Gram.) 15 gm PO Q15M PRN; Protocol PRN Reason: per Hypoglycemia Standing Ord. Heparin Sodium (Porcine) (Heparin Sodium,Porcine 5,000 Unit/Ml Vial) 5,000 unit SUBCUT Q12H [facility] Last Admin: 05/23/22 12:15 Dose: 5,000 unit Documented By: DIEGO Hydralazine HCl (Hydralazine Hcl 50 Mg Tablet) 50 mg PO TID [facility]; Protocol Insulin Human Lispro (Insulin Lispro 100 Unit/Ml 3 Ml Vial) 0 unit SUBCUT QIDACHS [facility]; Protocol Last Admin: 05/23/22 12:16 Dose: Not Given Documented By: DIEGO Non-Admin Reason: No Insulin Coverage Levetiracetam (Levetiracetam 500 Mg Tablet) 500 mg PO DAILY [facility] Last Admin: 05/23/22 12:24 Dose: 500 mg Documented By: DIEGO Lorazepam (Lorazepam 0.5 Mg Tablet) 0.5 mg PO DAILY PRN PRN Reason: Anxiety Losartan Potassium (Losartan Potassium 50 Mg Tablet) 100 mg PO DAILY [facility]; Protocol Last Admin: 05/23/22 12:13 Dose: 100 mg Documented By: DIEGO Meclizine HCl (Meclizine Hcl 25 Mg Tablet) 25 mg PO TID [facility] Montelukast Sodium (Montelukast Sodium 10 Mg Tablet) 10 mg PO DAILY [facility] Multivitamins/Vitamin C (Multivitamin Tablet) 1 tab PO DAILY [facility] Non-Formulary Medication (Cyclosporine [Restasis]) 1 drop EYE-BOTH BID [facility] Omeprazole (Omeprazole 20 Mg Capsule.Dr) 20 mg PO DAILY@0630 [facility] Ondansetron HCl (Ondansetron Hcl 4 Mg/2 Ml Vial) 4 mg IVPUSH Q8H PRN PRN Reason: Nausea and Vomiting Last Admin: 05/23/22 12:23 Dose: 4 mg Documented By: DIEGO Pharmacy Consult (Consult Rx Perform Med Rec) 1 each MISCELLANE ONCE PRN PRN Reason: Consult order Prochlorperazine Maleate (Prochlorperazine Maleate 5 Mg Tablet) 5 mg PO DAILY [facility] Sevelamer Carbonate (Sevelamer Carbonate Powder 800 Mg Powd.Pack) 800 mg PO TID [facility] Sodium Chloride (0.9 % Sodium Chloride Flush 3 Ml Syringe) [facility] Last Admin: 05/23/22 12:16 Dose: 3 ml Documented By: DIEGO Topiramate (Topiramate 25 Mg Tablet) 25 mg PO DAILY [facility] Venlafaxine HCl (Venlafaxine Hcl Er 75 Mg Cap.Er.24h) 75 mg PO DAILY [facility] Zolpidem Tartrate (Zolpidem Tartrate 5 Mg Tablet) 5 mg PO BEDTIME [facility] Zonisamide (Zonisamide 100 Mg Capsule) 100 mg PO DAILY [facility] Labs 05/22/22 17:26 05/23/22 06:07 Labs: Laboratory Results - last 24 hr 05/22/22 05/22/22 05/22/22 16:38 16:38 17:26 MCV 83.1 MCH 27.3 MCHC 32.9 RDW 12.8 Plt Count 185 MPV 10.3 Immature Gran % (Auto) 0.5 H Neut % (Auto) 77.8 H Lymph % (Auto) 9.5 L [place] % (Auto) 6.9 Eos % (Auto) 4.8 H Baso % (Auto) 0.5 Lymph # (Auto) 0.8 L [place] # (Auto) 0.6 Eos # (Auto) 0.4 Baso # (Auto) 0.0 Abs Immat Gran (auto) 0.04 H Absolute Neuts (auto) 6.3 Absolute Nucleated RBC 0.000 Nucleated RBC % (auto) 0.0 Smear Tech's Comments VERIFIED D-Dimer High Sensitivty Anion Gap 23 H Estim Creat Clear Calc 10.1 Estimated GFR 8 POC Glucose Random Glucose 61 Calcium 9.1 Total Bilirubin 1.0 Direct Bilirubin 0.2 AST 17 ALT 9 Alkaline Phosphatase 103 Troponin I High Sens 29.8 H Total Protein 7.3 Albumin 4.4 COVID-19 (SY) COVID-19 Clin Com Influenza Type A (CHRISTIE) Influenza Type B (CHRISTIE) Influenza A & B Note 05/22/22 05/22/22 05/22/22 17:26 17:26 20:46 MCV MCH MCHC RDW Plt Count MPV Immature Gran % (Auto) Neut % (Auto) Lymph % (Auto) [place] % (Auto) Eos % (Auto) Baso % (Auto) Lymph # (Auto) [place] # (Auto) Eos # (Auto) Baso # (Auto) Abs Immat Gran (auto) Absolute Neuts (auto) Absolute Nucleated RBC Nucleated RBC % (auto) Smear Tech's Comments D-Dimer High Sensitivty Anion Gap Estim Creat Clear Calc Estimated GFR POC Glucose Random Glucose Calcium Total Bilirubin Direct Bilirubin AST ALT Alkaline Phosphatase Troponin I High Sens 31.1 H Total Protein Albumin COVID-19 (SY) Negative COVID-19 Clin Com See Note Influenza Type A (CHRISTIE) Negative Influenza Type B (CHRISTIE) Negative Influenza A & B Note See Note 05/22/22 05/22/22 05/22/22 22:03 23:29 23:56 MCV MCH MCHC RDW Plt Count MPV Immature Gran % (Auto) Neut % (Auto) Lymph % (Auto) [place] % (Auto) Eos % (Auto) Baso % (Auto) Lymph # (Auto) [place] # (Auto) Eos # (Auto) Baso # (Auto) Abs Immat Gran (auto) Absolute Neuts (auto) Absolute Nucleated RBC Nucleated RBC % (auto) Smear Tech's Comments D-Dimer High Sensitivty 227 Anion Gap Estim Creat Clear Calc Estimated GFR POC Glucose 63 57 L* Random Glucose Calcium Total Bilirubin Direct Bilirubin AST ALT Alkaline Phosphatase Troponin I High Sens Total Protein Albumin COVID-19 (SY) COVID-19 Clin Com Influenza Type A (CHRISTIE) Influenza Type B (CHRISTIE) Influenza A & B Note 05/23/22 05/23/22 05/23/22 00:07 00:50 06:07 MCV MCH MCHC RDW Plt Count MPV Immature Gran % (Auto) Neut % (Auto) Lymph % (Auto) [place] % (Auto) Eos % (Auto) Baso % (Auto) Lymph # (Auto) [place] # (Auto) Eos # (Auto) Baso # (Auto) Abs Immat Gran (auto) Absolute Neuts (auto) Absolute Nucleated RBC Nucleated RBC % (auto) Smear Tech's Comments D-Dimer High Sensitivty Anion Gap 19 Estim Creat Clear Calc 7.7 Estimated GFR 6 POC Glucose 111 Random Glucose 66 Calcium 8.4 D Total Bilirubin 0.7 Direct Bilirubin AST 16 ALT 11 Alkaline Phosphatase 90 Troponin I High Sens 27.2 H Total Protein 6.4 L Albumin 3.9 COVID-19 (SY) COVID-19 Clin Com Influenza Type A (CHRISTIE) Influenza Type B (CHRISTIE) Influenza A & B Note 05/23/22 05/23/22 07:22 11:10 MCV MCH MCHC RDW Plt Count MPV Immature Gran % (Auto) Neut % (Auto) Lymph % (Auto) [place] % (Auto) Eos % (Auto) Baso % (Auto) Lymph # (Auto) [place] # (Auto) Eos # (Auto) Baso # (Auto) Abs Immat Gran (auto) Absolute Neuts (auto) Absolute Nucleated RBC Nucleated RBC % (auto) Smear Tech's Comments D-Dimer High Sensitivty Anion Gap Estim Creat Clear Calc Estimated GFR POC Glucose 74 107 Random Glucose Calcium Total Bilirubin Direct Bilirubin AST ALT Alkaline Phosphatase Troponin I High Sens Total Protein Albumin COVID-19 (SY) COVID-19 Clin Com Influenza Type A (CHRISTIE) Influenza Type B (CHRISTIE) Influenza A & B Note Assessment and Plan (1) Chest pain: Status: Acute (2) Headache: Status: Acute (3) CKD (chronic kidney disease): Status: Acute (4) Hypertensive urgency: Status: Acute Plan 47-year-old female with past medical history of a ESRD on dialysis Friday, hypertension as well as diabetes presents to the hospital with complaints of headache and chest pain, #? hypertensive urgency -? found to have significantly elevated blood pressure, with headache and chest pain -? troponin flat, EKG showed no ischemic changes, head CT negative -? patient treated with IV labetalol, amlodipine p.o.,?and 1 dose of hydralazine with improvement? of her BP - ?will resume home medications, case discussed with Dr. Gomez he recommend to continue current home medications and add clonidine 0.2 mg q.6 hours as needed for BP greater than 160, continue to monitor? BP # chest pain continuous reproducible likely musculoskeletal, no significant EKG changes flat troponin will treat blood pressure, continue statins, and Coreg. # Headache, complaining of persistent headache despite significant improvement in blood pressure, patient gives history of Tylenol and hydrocodone allergy, received multiple narcotics in ED, will follow clinical course patient appears comfortable at this time # ESRD - continue dialysis Wednesdays and Friday, continue Renvela # DM not on home medications blood sugars stable, check hemoglobin A1c continue diabetic diet. # hyperlipidemia continue Lipitor # mood disorder continue Abilify, BuSpar ,venlafaxine, lorazepam and Lexapro # history of seizure continue seizure medication Patient is on multiple medications, trying to obtain medication list from hemodialysis, daughter provided some information, patient is not fully aware of dosages, she admits that she takes medicine given by PCP as well as medicines given to a from [facility] and feels she does not need all these medications, will wait for final med list, pharmacist is helping to obtain med list. DVT Ppx:Heparin sub q Time Spent With Patient Time: Total time managing care of this patient today ____ minutes. Quality Stroke Does the patient have a stroke diagnosis?: No VTE Prior VTE?: No VTE Risk Level:: Medical - moderate - high VTE Device Contraindication: Treatment Not Indicated VTE Drug Contraindication: N/A - Med Ordered
[2022-05-23] MEDS: Meclizine HCl 25 MG TABLET PO ×2 (15:09→20:57)
[2022-05-23] MEDS: hydrALAZINE HCl 50 MG TABLET PO ×2 (15:09→20:58)
[2022-05-23] MEDS: HYDROmorphone HCl 2 MG TABLET 1 MG PO (15:09)
[2022-05-23 16:13] LABS: Glucose, Whole Blood 96 mg/dL (60-115)
[2022-05-23] MEDS: Albuterol Sulfate (0.083%) 2.5 MG/3 ML VIAL.NEB INHALE (17:06)
[2022-05-23] MEDS: Famotidine 20 MG TABLET PO (17:30)
[2022-05-23] MEDS: Butalb/Acetamin/Caff 50/325/40 TABLET 1 TAB PO (19:40)
[2022-05-23] MEDS: Prochlorperazine Maleate 5 MG TABLET PO (19:40)
[2022-05-23 20:13] LABS: Glucose, Whole Blood 91 mg/dL (60-115)
[2022-05-23] MEDS: Sevelamer Carbonate Powder 800 MG POWD.PACK PO (20:58)
[2022-05-23] MEDS: Atorvastatin Calcium 40 MG TABLET PO (20:58)
[2022-05-23] MEDS: busPIRone HCl 10 MG TABLET PO (20:58)
--- NOTE | 2022-05-23 22:42 | CONS_ITS ---
DATE OF SERVICE: 05/23/2022 REASON FOR CONSULTATION: I was asked to see patient to assist in evaluation and management of patient's dialysis needs. In this setting, being admitted to the hospital with severe hypertension that she was symptomatic from that apparently got worse at the end of her dialysis treatment yesterday. She is on dialysis Friday, Friday, Friday at the [facility] on the [facility]. HISTORY OF PRESENT ILLNESS: In summary, the patient is a 47-year-old with ESRD, dialyzed Friday, Friday, Friday. She has severe labile hypertension difficult to control. The patient was at dialysis, noted blood pressure being running high dialysis despite getting clonidine went up higher and higher at over 200 and she was having some symptoms, so she came to the hospital. Here at the hospital, she has been feeling better. Her blood pressure is doing a bit better with adjustment of her medications. She presently is fairly comfortable. Denies any chest pain, shortness of breath, fever, sweats, or chills. PAST MEDICAL HISTORY: Again is notable for the ESRD, diabetes, hypertension. HOME MEDICATIONS: As noted in the records. Her current medications include Abilify, Lipitor, carvedilol 6.25 twice a day, hydralazine 50 mg 3 times a day and Norvasc 10 mg once a day. SOCIAL HISTORY: She is an ex-smoker. No alcohol or illicit drug use. ALLERGIES: SHE HAS MULTIPLE ALLERGIES LISTED IN THE ELECTRONIC MEDICAL RECORD. FAMILY HISTORY: Noncontributory. REVIEW OF SYSTEMS: As noted above. PHYSICAL EXAMINATION: VITAL SIGNS: Blood pressure now is 164/94. It was as high as 230/110. HEAD: Atraumatic and normocephalic. NECK: Supple. Mucous membranes moist. LUNGS: Breath sounds bilaterally. CARDIAC: Regular rate and rhythm. ABDOMEN: Soft, nontender. EXTREMITIES: Show no edema. LABORATORY DATA: Hemoglobin 9.7, hematocrit 29.5, white blood cell count 8.1. Sodium 138, potassium 4.3, chloride 96, bicarb 27. IMPRESSION: End-stage renal disease. Patient with severe hypertension that has been challenging to control and labile at times. 1. End-stage renal disease. We will continue dialysis Friday, Friday, Friday. 2. Severe hypertension. Agree with current blood pressure medications and we will need to make further adjustments in titrating up her blood pressure medications. 3. Anemia. Continue to manage with epo and iron at the outpatient dialysis center. Recommendation at this time includes continue to monitor blood pressure and adjust the dose of blood pressure medications to get her into target range. Avoid dropping her blood pressure too much quickly at dialysis. We will follow the patient with the team. MD LULA Tang/JONATHAN / [id number]
[2022-05-23] MEDS: cloNIDine HCL 0.2 MG TABLET PO (23:34)
[2022-05-24] MEDS: LORazepam 2 MG/ML VIAL 0.5 MG IVPUSH (00:23)
[2022-05-24 03:07] VITALS: BP 160/83; PULSE 84; RESP 18; TEMP 36.6; O2SAT 98
[2022-05-24] MEDS: Butalb/Acetamin/Caff 50/325/40 TABLET 1 TAB PO ×2 (03:36→11:52)
[2022-05-24] MEDS: ondansetron HCL 4 MG/2 ML VIAL IVPUSH (05:03)
[2022-05-24 06:00] VITALS: BMI 23.4
[2022-05-24 07:01] VITALS: BP 150/62; PULSE 82; RESP 16; TEMP 36.3; O2SAT 98
[2022-05-24 07:11] LABS: Glucose, Whole Blood 61 mg/dL (60-115)
[2022-05-24] MEDS: Docusate Sodium 100 MG CAPSULE PO (08:08)
[2022-05-24] MEDS: ARIPiprazole 10 MG TABLET PO (08:08)
[2022-05-24] MEDS: Topiramate 25 MG TABLET PO (08:08)
[2022-05-24] MEDS: amLODIPine Besylate 10 MG TABLET PO (08:08)
[2022-05-24] MEDS: Sevelamer Carbonate Powder 800 MG POWD.PACK PO ×2 (08:08→14:58)
[2022-05-24] MEDS: Escitalopram Oxalate 20 MG TABLET PO (08:09)
[2022-05-24] MEDS: carvediloL 6.25 MG TABLET PO (08:09)
[2022-05-24] MEDS: Multivitamin TABLET 1 TAB PO (08:09)
[2022-05-24] MEDS: busPIRone HCl 10 MG TABLET PO (08:09)
[2022-05-24] MEDS: Omeprazole 20 MG CAPSULE.DR PO (08:09)
[2022-05-24] MEDS: Venlafaxine HCl ER 75 MG CAP.ER.24H PO (08:09)
[2022-05-24] MEDS: Losartan Potassium 50 MG TABLET 100 MG PO (08:09)
[2022-05-24] MEDS: Zonisamide 100 MG CAPSULE PO (08:09)
[2022-05-24] MEDS: Montelukast Sodium 10 MG TABLET PO (08:09)
[2022-05-24] MEDS: Meclizine HCl 25 MG TABLET PO ×2 (08:09→14:59)
[2022-05-24] MEDS: 0.9 % Sodium Chloride Flush 3 ML SYRINGE IVFLUSH ×2 (08:09→15:01)
[2022-05-24] MEDS: hydrALAZINE HCl 50 MG TABLET PO ×2 (08:09→14:59)
[2022-05-24] MEDS: calcitrioL 0.25 MCG CAPSULE 0.75 MCG PO (08:13)
--- NOTE | 2022-05-24 09:21 | PC.NURSE ---
pt to dialysis at this time via bed
[2022-05-24 10:53] LABS: Glucose, Whole Blood 106 mg/dL (60-115)
--- NOTE | 2022-05-24 11:27 | PHA.MEDREC ---
Pharmacy Consult ? Medication Reconciliation Pharmacy has completed the medication reconciliation. recieve list from [facility] pharmacy, PCP and diayslsis center. None of the list matched up. patient reported Keppra 500 mg BID, family report 50 mg SuTuThsa and 750 mg MoWeFr, PCP reproted 750 mg Daily + 750 mg after diaylsis. PCP has nifedipine but amlodipine have not been filled recently. PCP has not recorded of venlafaxine neither does [facility] pharmacy. PCP reported carvedilol 12.5 mg BID. PCP or [facility] pharmacy doesn't have losartan. [facility] has hydralazine on list prescribed byt PCP but PCP list does not have recorded. Spoke with Dr. Hoskins on issues. Andra Booth, PharmD
--- NOTE | 2022-05-24 11:31 | PM.PNNEP ---
Subjective Subjective Date of Service: 05/24/22 Interval history: seen and examined on dialysis no complaints Physical Exam Vital Signs: Vital Signs: Last Vital Signs Temp 97.3 F 05/24/22 07:01 Pulse 82 05/24/22 07:01 Resp 16 05/24/22 07:01 BP 150/62 H 05/24/22 07:01 Pulse Ox 98 05/24/22 07:01 O2 Del Method 05/24/22 07:01 BMI result Body Mass Index 23.4 Const: General: no acute distress HEENT: Head: Yes normocephalic and Yes atraumatic Neck: Neck: Yes supple Resp: Auscultation: diminished lung sounds Cardio: Heart sounds: S1 normal heart sound present and S2 normal heart sound present GI: Palpation (GI): Soft to palpation and nontender Extrem: General: Yes no pedal edema Objective Data Labs 05/22/22 17:26 05/23/22 06:07 Labs: Laboratory Results - last 24 hr 05/23/22 05/23/22 05/24/22 16:10 20:08 07:06 POC Glucose 96 91 61 05/24/22 10:50 POC Glucose 106 Procedures Date of Service Date of Service: 05/24/22 Assessment & Plan Assessment and plan (1) ESRD (end stage renal disease): Status: Acute (2) Anemia: Status: Acute Plan HD today UF as tolerated renal diet phosphate binders OC per protocol Time Spent With Patient Time: Total time managing care of this patient today ____ minutes. Progress Note: Quality Stroke Does the patient have a stroke diagnosis?: No
[2022-05-24] MEDS: diphenhydrAMINE HCL 50 MG/ML VIAL 25 MG IVPUSH (11:49)
[2022-05-24 12:00] VITALS: BP 117/65; PULSE 77; RESP 18; TEMP 36; O2SAT 96
--- NOTE | 2022-05-24 13:21 | PC.NURSE ---
Patient back from dialysis via bed at this time.
--- NOTE | 2022-05-24 14:11 | PM.DS ---
DS: Providers Provider Date of Service: 05/24/22 Date of admission: 05/22/22 23:35 Primary care physician: Ward Horton MD Consults: 05/23/22 07:05 Consult to Nephrology Routine Consulting Provider: [facility] Reason for consultation: ESRD Has provider been notified: No DS: Diagnosis Discharge Diagnosis (1) ESRD (end stage renal disease): Status: Acute (2) Anemia: Status: Acute DS: Summary Hospital Course Hospital Course: Date of Service: 05/22/22 Chief Complaint: IGNACIA saunders 47-year-old female with past medical history of ESRD on dialysis, hypertension, diabetes, presents to the hospital complaints of chest pain headache.? Patient reports that she has chronic severe as well as poorly controlled hypertension, that has been hard to control, currently being evaluated by Nephrology as well as her PCP in being monitored with new changes to her medications because she reports that her blood pressure is usually in the 200s.? Comes in complaining of diffuse headache, as well as midsternal chest pain.? She reports the chest pain to be pressure-like, constant, nonradiating, no relieving or exacerbating factors. Patient denies any nausea no vomiting, no abdominal pain, no diarrhea constipation, no urinary symptoms and no lower extremity edema.? She reports no palpitations.? To the ED patient hemodynamically stable with heart rate of 102, blood pressure of 229/106 Labs are significant for WBC count of 8.1, hemoglobin of 9.7, hematocrit 29.5, creatinine of 5.56, glucose of 57, troponin of 29 increased to 30 when then 3rd troponin of 27.2, COVID-19 influenza and RSV negative Patient received labetalol as well as a 2nd dose of amlodipine which she takes at home, as well as fentanyl for the headache with improvement in her symptoms as well as blood pressure. 47-year-old female with past medical history of a ESRD on dialysis Friday hypertension as well as diabetes presents to the hospital with complaints of headache and chest pain Patient admitted to [facility] with a diagnosis of hypertensive urgency, head CT was negative, troponin were elevated but flat patient chest pain was musculoskeletal with reproducible continuous chest pain , Headache improved with Dilaudid, patient was placed back on home medications, but unfortunately patient was not aware of her medication list neither was her daughter , pharmacy obtained medication list from PCP, dialysis and [facility] pharmacy , according to that list, patient was not on losartan, venlafaxine, PCP had nifedipine but it was last filled in December there were different dosages of Keppra not matching according to pharmacy list and waht daughter provided, patient seen by Nephrology seems patient is noncompliant with her medications Nephro recommend to discharge patient on all of the current medications, there are 2 different dosages of Coreg will discharge her on Coreg 12.5 mg b.i.d. will add hydralazine 50 mg t.i.d., losartan 50 mg daily, Norvasc 10 mg by mouth daily strongly recommend patient to have compliance with all home medications and to have a follow-up with PCP to verify all home medications Atypical chest pain likely musculoskeletal and headache improved with Dilaudid , as per patient she is allergic to hydrocodone, Tylenol, and ibuprofen ESRD recommend to continue hemodialysis Friday and Fridays Time Spent with Patient Time attestation: Total time managing care of this patient today ____ minutes. Discharge coordination time: Greater than 30 minutes Quality: Safe Use of Opioids Does Pt have an Active Cancer Diagnosis on the Problem List?: No Quality: Stroke Does the patient have a stroke diagnosis?: No Physical Exam Vital Signs: Vital Signs: Last Vital Signs Temp 96.8 F 05/24/22 12:00 Pulse 77 05/24/22 12:00 Resp 18 05/24/22 12:00 BP 117/65 05/24/22 12:00 Pulse Ox 96 05/24/22 12:00 O2 Del Method 05/24/22 12:00 BMI result Body Mass Index 23.4 Const: Other: General sitting co mfortably in bed, talking in full se ntences, in no acu te distress.? Neck ? supple no JVD. C VS? regular rate r hythm Respiratory lungs clear to aus cultation, no resp iratory distress, no wheeze, no rhon chi. Gastrointesti nal abdomen soft, nontender, bowel s ounds audible, no guarding , no rigi dity. Extremities no edema. Left ar m fistula Neuro no nfocal , speech cl ear. Skin no rash Psych appropriate affect DS: Data Data Completed and Pending Labs on day of discharge: Laboratory Results - last 24 hr 05/23/22 05/23/22 05/24/22 16:10 20:08 07:06 POC Glucose 96 91 61 05/24/22 10:50 POC Glucose 106 Discharge Plan Discharge Patient Disposition: Home, Self-Care Discharge Diagnosis: Hypertensive urgency Referrals: Ward Horton MD [Primary Care Provider] - 1 Week Discharge Medications: New hydralazine 50 mg Tablet 50 mg PO TID Qty: 90 0RF Protocol: Hold for SBP< HOLD for SBP < : 90 losartan [Cozaar] 50 mg tablet 50 mg PO DAILY Qty: 30 0RF Continued atorvastatin 40 mg tablet 40 mg PO BEDTIME albuterol sulfate 2.5 mg /3 mL (0.083 %) solution for nebulization 2.5 mg inhalation Q4H PRN (Reason: Shortness Of Breath) prochlorperazine maleate 5 mg tablet 5 mg PO DAILY PRN (Reason: Nausea) ondansetron HCl 4 mg tablet 1 tab PO Q8H PRN (Reason: Nausea) meclizine 12.5 mg tablet 25 tab PO TID zonisamide 100 mg capsule 100 mg PO DAILY hydromorphone 2 mg tablet 1 mg PO MOWEFR@0900 PRN (Reason: Pain) amlodipine 10 mg tablet 10 mg PO DAILY buspirone 10 mg tablet 1 tab PO BID fluticasone propion-salmeterol [Wixela Inhub] 500-50 mcg/dose blister with device 1 puff inhalation BID omeprazole 20 mg capsule,delayed release(DR/EC) 20 mg PO DAILY montelukast 10 mg tablet 1 tab PO DAILY Brittny-Chante 0.8 mg tablet 1 tab PO DAILY zolpidem [Ambien] 10 mg tablet 1 tab PO BEDTIME albuterol sulfate 90 mcg/actuation HFA aerosol inhaler 2 inh inhalation Q4H PRN (Reason: Shortness Of Breath) calcitriol 0.25 mcg capsule 3 cap PO MOWEFR@0900 escitalopram oxalate [Lexapro] 20 mg tablet 1 tab PO QAM aripiprazole 10 mg tablet 10 mg PO DAILY cyclosporine [Restasis] 0.05 % dropperette 1 drp ophthalmic (eye) BID sevelamer carbonate 2.4 gram powder in packet 1 packet PO TID docusate sodium 100 mg Capsule 100 mg PO DAILY@1200 PRN (Reason: Constipation) hydroxyzine pamoate [Vistaril] 50 mg capsule 1 cap PO BID cholecalciferol (vitamin D3) 25 mcg (1,000 unit) Tablet 25 mcg PO DAILY melatonin 10 mg Tablet 10 mg PO BEDTIME carvedilol 12.5 mg tablet 12.5 mg PO BID levetiracetam 500 mg Tablet 500 mg PO SUTUTHSA@0900 levetiracetam 750 mg tablet 750 mg PO MOWEFR@1400 Discontinued cetirizine 5 mg Tablet 5 mg PO DAILY hydrocortisone 10 mg tablet 20 mg PO DAILY hydrocortisone 10 mg tablet 10 mg PO BEDTIME Discharge Orders: Discharge Order (Routine); Ordered 05/24/22 Ordered By: Tiarra Hoskins Diet: low potassium diet Activity on Discharge: As tolerated Stand Alone Forms: Patient Portal Discharge page Care Plan Goals: Take all blood pressure medications as ordered Please call PCP for follow-up appointment to go over all medications, please keep medication list with you all the time. Health Concerns: End-stage renal disease continue hemodialysis Friday and Fridays Plan of Treatment: Follow-up with primary care physician and Nephrology call for appointment Assessment: As above
[2022-05-24 14:44] VITALS: BP 138/63; PULSE 70; RESP 20; TEMP 36.2; O2SAT 97
[2022-05-24] MEDS: levETIRAcetam 250 MG TABLET 750 MG PO (14:59)
--- NOTE | 2022-05-24 15:41 | MHC.CM.PN ---
IMM 05/22/22 Patient is discharged to home with resumption of [facility] and [facility] services. Patient has arranged for transport home.
== END 2022-05-24 17:30 | disposition home or self-care (01) ==
LOC: HO.ED 23:36 → HO.EDOVER 23:53 → HO.IMC 05-23 00:35
PROVIDERS: Nurse Practitioner Family; Physician Assistant; Admitting Provider Internal Medicine; Emergency Provider Emergency Medicine; PCP Pediatrics; Visit Provider Hospitalist
DX: I16.0 Hypertensive urgency (principal); E11.22 Type 2 diabetes mellitus with diabetic chronic kidney disease; I12.0 Hypertensive chronic kidney disease with stage 5 chronic kidney disease or end stage renal disease; N18.6 End stage renal disease; Z99.2 Dependence on renal dialysis; R07.9 Chest pain, unspecified; R51.9 Headache, unspecified; R11.2 Nausea with vomiting, unspecified; R00.0 Tachycardia, unspecified; Z20.822 Contact with and (suspected) exposure to COVID-19; D64.9 Anemia, unspecified; Z87.891 Personal history of nicotine dependence; Z91.14 Patient's other noncompliance with medication regimen
CPT/HCPCS: 36415; 70450; 80048; 80053; 80076; 82947; 84484; 85025; 85379; 87502; 87635; 90935; 93005; 94640; 96361; 96372; 96374; 96375; 96376; 99222; 99285; J1170; J1200; J1643; J2060; J2405; J3010; J3030

== ENCOUNTER 2023-01-29 15:13 | Emergency (ER) | payer OTHER, SELFPAY ==
--- NOTE | ~2023-01-29 | CT_ITS ---
EXAMINATION: CT ANGIOGRAM OF THE CHEST WITH AND WITHOUT CONTRAST (CT PULMONARY ANGIOGRAM FOR PE) CLINICAL INFORMATION: Reason for Exam Chest pain COMPARISON: None available. TECHNIQUE: Prior to contrast administration, noncontrast localization images were obtained. Subsequently, multidetector volumetric imaging was performed from the thoracic inlet to below the diaphragms following the administration of 80 mL Omnipaque 350 intravenous contrast. No contrast reaction reported Sagittal, coronal, and MIP oblique sagittal reformatted images were obtained on the CT workstation, uploaded to PACS, and reviewed. This CT examination was performed using dose optimization techniques as appropriate, variously including the following: *Automated exposure control *Adjustment of mA and/or kV according to patient size (this includes techniques or standardized protocols for targeted exams where dose is matched to indication/reason for exam; i.e. extremities or head) *Use of iterative reconstruction technique Total exam dose-length product 178 mGy-cm FINDINGS: QUALITY OF STUDY/CONTRAST BOLUS: Satisfactory. PULMONARY ARTERIES: No pulmonary emboli. THORACIC AORTA: No aneurysm. LUNG: No focal consolidation, nodules or masses. PLEURA: No pleural effusion or pneumothorax. MEDIASTINUM: Normal heart size. No pericardial effusion. No hilar or mediastinal lymphadenopathy. No evidence of septal bowing or right heart strain. CORONARY ARTERY CALCIFICATION: None visualized on this study. CHEST WALL/AXILLA: No axillary or internal mammary lymphadenopathy. OSSEOUS STRUCTURES: No acute or suspicious osseous abnormality. UPPER ABDOMEN: Unremarkable. No reflux of contrast into the hepatic veins to suggest elevated right heart pressures. CT/CT angio chest PE protocol IMPRESSION: No evidence for pulmonary embolism. No active cardiopulmonary disease. VTE: negative
--- NOTE | ~2023-01-29 | XR_ITS ---
EXAMINATION: XR CHEST CLINICAL INFORMATION: Chest pain COMPARISON: 11/12/2019 TECHNIQUE: 2 views of the chest were obtained. FINDINGS: Heart size has increased since the prior study and the heart is now mildly enlarged. There is no evidence of CHF. No infiltrates effusions or lung masses are seen. XR/XR chest 2V IMPRESSION: Mild cardiomegaly. No acute intrathoracic disease.
[2023-01-29 15:33] VITALS: BP 227/101; PULSE 88; RESP 18; TEMP 36.6; O2SAT 97; BMI 21.3
[2023-01-29 15:58] LABS: MANUAL DIFF FLAG NO
[2023-01-29 15:59] LABS: Basophils Absolute Auto 0.1 X10*3/uL (0.0-0.2); Basophils Percent Auto 0.7 % (0-2); Eosinophils Absolute Auto 0.4 X10*3/uL (0.0-0.4); Eosinophils Percent Auto 5.6 % (0-4); Hemoglobin 12.5 g/dl (12.0-16.0); Imm Gran Abs Auto 0.04 X10*3/uL (0.00-0.03); Imm Gran Pct Auto 0.5 % (0.0-0.4); Lymphocytes Absolute Auto 1.1 X10*3/uL (1.2-4.9); Lymphocytes Percent Auto 14.6 % (20-40); Mean Corpuscular HGB Conc 32.1 g/dl (31.0-35.0); Mean Corpuscular Hemoglobin 27.2 pg (27.0-33.0); Mean Corpuscular Volume 84.8 fL (80.0-98.0); Mean Platelet Volume 9.2 fL (9.4-12.3); Monocytes Absolute Auto 0.3 X10*3/uL (0.1-1.2); Monocytes Percent Auto 4.3 % (2-11); NRBC Pct Auto 0.3 /100WBC (0.0-0.2); Neutrophils Absolute Auto 5.6 x10*3/uL (2.0-8.3); Neutrophils Percent Auto 74.3 % (45-73); Platelet Count 338 X10*3/uL (160-400); Red Cell Distribution Width 15.8 % (11.0-16.0); White Blood Count 7.5 X10*3/uL (4.8-10.8)
--- NOTE | 2023-01-29 16:11 | ECG_ITS ---
Test Reason : CHEST PAIN Blood Pressure : / mmHG Vent. Rate : 093 BPM Atrial Rate : 093 BPM P-R Int : 150 ms QRS Dur : 084 ms QT Int : 410 ms P-R-T Axes : 040 077 065 degrees QTc Int : 509 ms Poor data quality, interpretation may be adversely affected Normal sinus rhythm Prolonged QT Abnormal ECG When compared with ECG of 22-MAY-2022 19:54, No significant change was found Referred By: Katherin Ronquillo Electronically Signed By:HERIBERTO ROB
--- NOTE | 2023-01-29 16:12 | ED_ITS ---
HPI - Chest Pain General Chief Complaint: Chest Pain Stated Complaint: Chest pain x 1hr, dizzy, nausea Time Seen by Provider: 01/29/23 16:00 Source: patient Mode of arrival: EMS Limitations: no limitations History of Present Illness HPI narrative: Patient is a 47-year-old female who presents emergency department via EMS coming from dialysis for chest pain. Patient states that on 01/07/2023 she had a cardiac arrest for which she was treated at [facility] and states that she subsequently developed rib fractures. She states she has been having ongoing chest pain since then predominantly to the right lower lateral chest. However today while at dialysis (MWF w/ LUE AV fistula- missed treatment friday, completed today, anuria) she noticed a sudden increase in the severity of the pain approximately 1 hour prior to arrival. She states that this severity has decreased in is back to her baseline but she endorses feeling increasing dizziness and shortness of breath. At this time pain is made worse with deep inspiration/movement. She also states that for the past 3 days she has been having nausea and vomiting which also exacerbates her chest pain, also exacerbated with certain movements/position change. Reportedly upon discharge from the hospital she was given a short prescription for Dilaudid but has since ran out and was unable to receive a new prescription from her primary care provider, as she does not have a follow-up appointment until 02/23. Currently she denies headache, vision changes, neck pain, jaw pain, URI symptoms, abdominal pain, numbness or tingling of the extremities. EMS gave aspirin 324 mg orally prior to arrival. Related Data Home Medications Medication Instructions Recorded Confirmed albuterol sulfate 2.5 mg/3 mL 2.5 mg inhalation Q4H PRN 05/23/22 05/23/22 (0.083 %) solution for nebulization Shortness Of Breath albuterol sulfate 90 mcg/actuation 2 inh inhalation Q4H PRN Shortness 05/23/22 05/23/22 aerosol inhaler Of Breath amlodipine 10 mg tablet 10 mg PO DAILY 05/23/22 05/24/22 aripiprazole 10 mg tablet 10 mg PO DAILY 05/23/22 05/23/22 atorvastatin 40 mg tablet 40 mg PO BEDTIME 05/23/22 05/23/22 buspirone 10 mg tablet 1 tab PO BID 05/23/22 05/23/22 calcitriol 0.25 mcg capsule 3 cap PO MOWEFR@0900 05/23/22 05/23/22 cholecalciferol (vitamin D3) 25 25 mcg PO DAILY 05/23/22 05/23/22 mcg (1,000 unit) tablet cyclosporine 0.05 % eye drops in a 1 drp ophthalmic (eye) BID 05/23/22 05/24/22 dropperette (Restasis) docusate sodium 100 mg capsule 100 mg PO DAILY@1200 PRN 05/23/22 05/23/22 Constipation escitalopram oxalate 20 mg tablet 1 tab PO QAM depressive disorder 05/23/22 05/23/22 (Lexapro) fluticasone 500 mcg-salmeterol 50 1 puff inhalation BID 05/23/22 05/23/22 mcg/dose blistr powdr for inhalation (Wixela Inhub) hydromorphone 2 mg tablet 1 mg PO MOWEFR@0900 PRN Pain 05/23/22 05/23/22 hydroxyzine pamoate 50 mg capsule 1 cap PO BID 05/23/22 05/23/22 (Vistaril) meclizine 12.5 mg tablet 25 tab PO TID 05/23/22 05/24/22 melatonin 10 mg tablet 10 mg PO BEDTIME 05/23/22 05/23/22 montelukast 10 mg tablet 1 tab PO DAILY 05/23/22 05/23/22 omeprazole 20 mg capsule,delayed 20 mg PO DAILY 05/23/22 05/23/22 release ondansetron HCl 4 mg tablet 1 tab PO Q8H PRN Nausea 05/23/22 05/23/22 prochlorperazine maleate 5 mg 5 mg PO DAILY PRN Nausea 05/23/22 05/23/22 tablet sevelamer carbonate 2.4 gram oral 1 packet PO TID 05/23/22 05/23/22 powder packet vitamin B complex-vitamin C-folic 1 tab PO DAILY 05/23/22 05/24/22 acid 0.8 mg tablet (Brittny-Chante) zolpidem 10 mg tablet (Ambien) 1 tab PO BEDTIME insomnia 05/23/22 05/23/22 zonisamide 100 mg capsule 100 mg PO DAILY 05/23/22 05/23/22 carvedilol 12.5 mg tablet 12.5 mg PO BID 05/24/22 05/24/22 levetiracetam 500 mg tablet 500 mg PO SUTUTHSA@0900 05/24/22 05/24/22 levetiracetam 750 mg tablet 750 mg PO MOWEFR@1400 05/24/22 05/24/22 Previous Rx's Medication Instructions Recorded hydralazine 50 mg tablet 50 mg PO TID #90 tabs 05/24/22 losartan 50 mg tablet (Cozaar) 50 mg PO DAILY #30 tabs 05/24/22 Allergies Allergy/AdvReac Type Severity Reaction Status Date / Time acetaminophen [From TYLENOL] Allergy Unknown UNKNOWN Unverified 01/13/20 18:31 hydrocodone [HYDROCODONE] Allergy Unknown UNKNOWN Unverified 01/13/20 18:31 ibuprofen [IBUPROFEN] Allergy Unknown UNKNOWN Unverified 01/13/20 18:31 latex [LATEX] Allergy Unknown UNKNOWN Unverified 01/13/20 18:31 trazodone [TRAZODONE] Allergy Unknown UNKNOWN Unverified 01/13/20 18:31 Review of Systems 2 Review of Systems: Yes all other systems are reviewed and are negative PMFSH Past Medical History Attestation statement: The following information was validated with the patient. Source: old records reviewed Medical History Anemia ESRD (end stage renal disease) Diabetes Hypertension ESRD on dialysis CKD (chronic kidney disease) Social History Social History Household Members: Children Housing: House Do you presently have visiting nurse or other home services: Yes (daughter is RESIDENT CARE AIDE, PT comes to house) Alcohol intake: unknown Patient Tobacco Use Status: Former Tobacco user Advance Directives: No service: No Current occupational status: disabled Physical Exam 2 Vital Signs: Vital Signs: Last Vital Signs Temp 97.8 F 01/29/23 15:33 Pulse 88 01/29/23 15:33 Resp 18 01/29/23 15:33 BP 227/101 H 01/29/23 15:33 Pulse Ox 97 01/29/23 15:33 O2 Del Method Room Air 01/29/23 15:33 BMI result Body Mass Index 21.3 Appearance: Alert.?Oriented to person, place and time. No acute distress.?Normal affect. Eyes: Pupils equal, round and reactive to light.? ENT: Pharynx normal.?? Neck: Normal inspection.? Neck supple.?? CVS: Heart sounds normal. Normal heart rate and rhythm.? Pulses normal.??Left upper extremity AV fistula positive bruit and thrill. Respiratory: No respiratory distress.? Lung sounds clear to auscultation bilaterally. Diffuse tenderness upon palpation of the chest wall. Abdomen: Soft and non-tender. Normoactive bowel sounds. No pulsatile mass.?? Skin: Skin warm and dry.? Normal skin color.? .?? Extremities: No lower extremity edema.? No calf ttp? Neuro: Moves all extremities spontaneously. Sensation intact bilaterally. CN II- XII intact. No focal neuro deficits. Ambulates with normal steady gait. Course Reevaluation(s) Reevaluation #1: EKG without acute ischemic abnormalities at this time, initial troponin 30.5 which appears consistent with prior levels in April 2022 delta trop is flat; I suspect pain is most consistent with pleuritic nature at this time; Pending records from [facility] still. CBC is without leukocytosis or anemia, CMP revealing renal function consistent with baseline, anion gap metabolic acidosis most likely uremic with ESRD. She had initial improvement in pain with IV morphine, which lasted approximately 2 hours. Will trial oral morphine at this time. Discussed this case with ED attending Dr. Mendez; will obtain CT angio of the chest for further evaluation. Time: 20:33 Reevaluation #2: CT unable to use EJ for CT angio of the chest per protocol.. Dr. Mendez to bedside to attempt peripheral US line so that imaging at obtained. At this time still do not have records from [facility] Time: 22:15 Reevaluation #3: CT is negative for any acute abnormality, no evidence of rib fracture, pleural effusion, pulmonary embolism. Discussed findings with Dr. Mendez, at this time agrees with plan of care for discharge. I discussed these findings with patient at this time. Feel that she is stable for discharge home and outpatient follow-up with her primary care provider. We discussed strict return precautions. All questions were answered. Time: 01:32 Medications Administered Discontinued Medications Generic Name Dose Route Start Last Admin Trade Name Freq PRN Reason Stop Dose Admin Hydromorphone HCl 1 mg 01/29/23 23:35 01/29/23 23:41 Hydromorphone Hcl 2 Mg Tablet PO 01/29/23 23:36 1 mg ONCE ONE Administration Iohexol 65 ml 01/30/23 00:55 01/30/23 00:56 Iohexol 350 Mg/Ml 100 Ml Infus..Btl IV 01/30/23 00:56 65 ml ONCE ONE Administration Morphine Sulfate 4 mg 01/29/23 16:52 01/29/23 17:16 Morphine Sulfate 4 Mg/Ml Cartridge IVPUSH 01/29/23 16:53 4 mg ONCE ONE Administration Protocol Morphine Sulfate 15 mg 01/29/23 19:49 01/29/23 20:00 Morphine Sulfate Immed Release 15 Mg Tablet PO 01/29/23 19:50 15 mg ONCE ONE Administration Ondansetron HCl 4 mg 01/29/23 16:57 01/29/23 17:17 Ondansetron Hcl 4 Mg/2 Ml Vial IVPUSH 01/29/23 16:58 4 mg ONCE ONE Administration Ondansetron HCl 4 mg 01/29/23 23:58 01/30/23 00:25 Ondansetron Hcl 4 Mg/2 Ml Vial IVPUSH 01/29/23 23:59 4 mg ONCE ONE Administration Procedures EJ/Peripheral Line Neck L: Time Out Performed: Yes Skin Cleansed in Sterile Fashion: Yes Size (gauge): 18 IV Secured and Dressing Applied: Yes Patient Tolerated Procedure: well Additional Comments: Performed by Gustavo Ryan DO Medical Decision Making Medical Decision Making MDM Narrative: Patient is a 47-year-old female with past medical history of iron deficiency anemia, type 2 diabetes, hyperlipidemia, hypertension, PTSD, epilepsy on Keppra, asthma, GERD, ESRD on dialysis, diastolic CHF, osteoarthritis presenting to emergency department for evaluation of chest pain as per HPI. At the time of my examination she appears overall unwell, she is in clear full sentences, no apparent respiratory distress. She is hypertensive with BP 227/101. Will obtain CBC to evaluate for leukocytosis/ anemia, CMP and lipase to evaluate for abnormal electrolytes /abnormal renal function/ abnormal hepatic/biliary function, EKG and troponin to evaluate for ischemia/ACS. Chest x-ray to evaluate for consolidation/ infiltrate/ mass/ pulmonary congestion CXR. Differential Diagnosis Differential Diagnoses: The differential diagnosis associated with the presentation includes (ACS, costochondritis, pleurisy, rib fracture, PE) Admission/Observation Consideration of admission/observation: Escalation of care including admission/observation considered (See course narrative for further detail) Lab Data MDM Lab Attestation statement: I reviewed the patient's lab results. ESRD with BUN and creatinine consistent with baseline, CBC without leukocytosis. Troponin 30.5 01/29/23 15:53 01/29/23 15:53 Labs: Lab Results 01/29/23 01/29/23 01/29/23 Range/Units 15:53 16:04 19:19 WBC 7.5 (4.8-10.8) X10*3/uL RBC 4.60 D (4.20-5.50) X10*6/uL Hgb 12.5 D (12.0-16.0) g/dl Hct 39.0 D (37.0-47.0) % MCV 84.8 (80.0-98.0) fL MCH 27.2 (27.0-33.0) pg MCHC 32.1 (31.0-35.0) g/dl RDW 15.8 (11.0-16.0) % Plt Count 338 D (160-400) X10*3/uL MPV 9.2 L (9.4-12.3) fL Immature Gran % (Auto) 0.5 H (0.0-0.4) % Neut % (Auto) 74.3 H (45-73) % Lymph % (Auto) 14.6 L (20-40) % Zavala % (Auto) 4.3 (2-11) % Eos % (Auto) 5.6 H (0-4) % Baso % (Auto) 0.7 (0-2) % Lymph # (Auto) 1.1 L (1.2-4.9) X10*3/uL Zavala # (Auto) 0.3 (0.1-1.2) X10*3/uL Eos # (Auto) 0.4 (0.0-0.4) X10*3/uL Baso # (Auto) 0.1 (0.0-0.2) X10*3/uL Abs Immat Gran (auto) 0.04 H (0.00-0.03) X10*3/uL Absolute Neuts (auto) 5.6 (2.0-8.3) x10*3/uL Absolute Nucleated RBC 0.020 H (0.0-0.012) X10*3/uL Nucleated RBC % (auto) 0.3 H (0.0-0.2) /100WBC PT 11.2 (11.1-13.3) SEC INR 0.9 (0.9-1.1) Sodium 140 (135-145) mmol/L Potassium 4.5 (3.3-5.1) mmol/L Chloride 94 L (96-108) mmol/L Carbon Dioxide 24 (22-29) mmol/L Anion Gap 26 H (12-20) BUN 27 H (9-16) mg/dL Creatinine 7.55 H* (0.5-1.4) mg/dL Estim Creat Clear Calc 7.4 Estimated GFR 6 Random Glucose 87 (60-115) mg/dL Calcium 10.5 H D (8.4-10.2) mg/dL Total Bilirubin 0.9 (0.0-1.0) mg/dL AST 37 H (5-31) U/L ALT 16 (0-31) U/L Alkaline Phosphatase 125 H (39-117) U/L Troponin I High Sens 30.5 H 30.9 H (<3.5-17.0) ng/L B-Natriuretic Peptide 1591 H (<100) pg/mL Total Protein 9.7 H (6.5-8.0) g/dL Albumin 5.2 H (3.5-5.0) g/dL Independent Interpretation I performed an independent interpretation of an: EKG and Plain X-Ray (I personally interpreted chest x-ray and agree with radiologist impression.) Interpretation: Rate:93 Rhythm:? Normal sinus rhythm Normal P waves.? Normal WILLY.?? Normal QRS complex.?? ST T wave :??No ST elevation, no ST depression, no T-wave inversion qTC: Prolonged; 509 prior studies:? April 2022 The study has been interpreted contemporaneously by me. Radiology Impression Discussion of test interpretation with radiology: I have reviewed the radiologist's reading. Radiologist Impression: XR/XR chest 2V IMPRESSION: Mild cardiomegaly. No acute intrathoracic disease. CT/CT angio chest PE protocol IMPRESSION: No evidence for pulmonary embolism. No active cardiopulmonary disease. VTE: negative Independent Historian Clinical information obtained from an independent historian. History obtained from or confirmed by: EMS External Record Review External record reviewed: Prior outpatient labs Prescription Management I considered prescription management with: Pain Medication (At this time do not see indication for further management with Dilaudid, advised outpatient follow- up with her primary care provider.) Discharge Plan Discharge Clinical Impression: Chest pain Patient Disposition: Home, Self-Care Additional Instructions: As discussed, your blood work today appears consistent with your baseline, no new abnormalities. The imaging that we did today does not show any abnormality, nor do we see any evidence of rib fracture. This is very reassuring. Please follow-up with your primary care provider for further management and treatment. You may return back to emergency department any new or worsening symptoms or concerns. Prescriptions: No Action atorvastatin 40 mg tablet 40 mg PO BEDTIME albuterol sulfate 2.5 mg /3 mL (0.083 %) solution for nebulization 2.5 mg inhalation Q4H PRN (Reason: Shortness Of Breath) prochlorperazine maleate 5 mg tablet 5 mg PO DAILY PRN (Reason: Nausea) ondansetron HCl 4 mg tablet 1 tab PO Q8H PRN (Reason: Nausea) meclizine 12.5 mg tablet 25 tab PO TID zonisamide 100 mg capsule 100 mg PO DAILY hydromorphone 2 mg tablet 1 mg PO MOWEFR@0900 PRN (Reason: Pain) amlodipine 10 mg tablet 10 mg PO DAILY buspirone 10 mg tablet 1 tab PO BID fluticasone propion-salmeterol [Wixela Inhub] 500-50 mcg/dose blister with device 1 puff inhalation BID omeprazole 20 mg capsule,delayed release(DR/EC) 20 mg PO DAILY montelukast 10 mg tablet 1 tab PO DAILY Brittny-Chante 0.8 mg tablet 1 tab PO DAILY zolpidem [Ambien] 10 mg tablet 1 tab PO BEDTIME albuterol sulfate 90 mcg/actuation HFA aerosol inhaler 2 inh inhalation Q4H PRN (Reason: Shortness Of Breath) calcitriol 0.25 mcg capsule 3 cap PO MOWEFR@0900 escitalopram oxalate [Lexapro] 20 mg tablet 1 tab PO QAM aripiprazole 10 mg tablet 10 mg PO DAILY cyclosporine [Restasis] 0.05 % dropperette 1 drp ophthalmic (eye) BID sevelamer carbonate 2.4 gram powder in packet 1 packet PO TID docusate sodium 100 mg Capsule 100 mg PO DAILY@1200 PRN (Reason: Constipation) hydroxyzine pamoate [Vistaril] 50 mg capsule 1 cap PO BID cholecalciferol (vitamin D3) 25 mcg (1,000 unit) Tablet 25 mcg PO DAILY melatonin 10 mg Tablet 10 mg PO BEDTIME carvedilol 12.5 mg tablet 12.5 mg PO BID levetiracetam 500 mg Tablet 500 mg PO SUTUTHSA@0900 levetiracetam 750 mg tablet 750 mg PO MOWEFR@1400 hydralazine 50 mg Tablet 50 mg PO TID Qty: 90 0RF Protocol: Hold for SBP< HOLD for SBP < : 90 losartan [Cozaar] 50 mg tablet 50 mg PO DAILY Qty: 30 0RF Referrals: Physician,Unknown J [Primary Care Provider] -
[2023-01-29 16:29] LABS: Alanine Aminotransferase 16 U/L (0-31); Albumin Level 5.2 g/dL (3.5-5.0); Alkaline Phosphatase 125 U/L (39-117); Aspartate Amino Transferase 37 U/L (5-31); Bilirubin Total 0.9 mg/dL (0.0-1.0); Blood Urea Nitrogen 27 mg/dL (9-16); Calcium 10.5 mg/dL (8.4-10.2); Carbon Dioxide 24 mmol/L (22-29); Chloride 94 mmol/L (96-108); Creatinine Clr Calc Pharmacy 7.4; Estimated Glomerular Filt Rate 6; Glucose Random 87 mg/dL (60-115); Potassium 4.5 mmol/L (3.3-5.1); Sodium 140 mmol/L (135-145); Total Protein 9.7 g/dL (6.5-8.0)
[2023-01-29] MEDS: Morphine Sulfate 4 MG/ML CARTRIDGE IVPUSH (17:16)
[2023-01-29] MEDS: ondansetron HCL 4 MG/2 ML VIAL IVPUSH (17:17)
[2023-01-29 17:36] LABS: Troponin-I High Sensitivity 30.5 ng/L (<3.5-17.0)
[2023-01-29 18:27] LABS: Anion Gap 26 (12-20)
[2023-01-29 19:35] LABS: INTERNATIONAL NORM RATIO 0.9 (0.9-1.1); Prothrombin Time 11.2 SEC (11.1-13.3)
[2023-01-29 19:44] LABS: B Type Natriuretic Peptide 1591 pg/mL (<100)
[2023-01-29 19:50] LABS: Troponin-I High Sensitivity 30.9 ng/L (<3.5-17.0)
[2023-01-29] MEDS: Morphine Sulfate Immed Release 15 MG TABLET PO (20:00)
[2023-01-29] MEDS: HYDROmorphone HCl 2 MG TABLET 1 MG PO (23:41)
[2023-01-30] MEDS: ondansetron HCL 4 MG/2 ML VIAL IVPUSH (00:25)
[2023-01-30] MEDS: iohexoL 350 MG/ML 100 ML INFUS..BTL 65 ML IV (00:56)
[2023-01-30 01:50] VITALS: BP 149/77; PULSE 90; RESP 18; TEMP 37; O2SAT 98
[2023-02-03 18:47] LABS: Levetiracetam Keppra <2.0 mcg/mL (6.0-46.0)
== END 2023-01-30 02:05 | disposition home or self-care (01) ==
PROVIDERS: Nurse Practitioner Family; Emergency Provider Emergency Medicine
DX: R07.89 Other chest pain (principal); R42 Dizziness and giddiness; D50.9 Iron deficiency anemia, unspecified; R06.02 Shortness of breath; R11.2 Nausea with vomiting, unspecified; Z79.899 Other long term (current) drug therapy; Z87.891 Personal history of nicotine dependence
CPT/HCPCS: 36415; 36556; 71046; 71275; 80053; 80177; 83880; 84484; 85025; 85610; 93005; 96374; 96375; 96376; 99284; 99285; J2270; J2405; Q9967